=== PATIENT | male | born 1950 | race Caucasian/White ===

== ENCOUNTER 2018-02-27 08:34 | Inpatient (IN) | payer OTHER ==
[2018-02-27] VITALS (28 sets, daily range): BP systolic 90–175; BP diastolic 52–160; PULSE 51–100; TEMP 36.5–37; O2SAT 91–100; Ht 175.3 cm; Wt 88.5 kg
[~2018-02-27] VITALS: Ht 175.3 cm; Wt 88.5 kg
[2018-02-27] MEDS ORDERED: SODIUM CHLORIDE 0.9% 1000ML 1,000 ML IV SCH (08:38)
--- NOTE | 2018-02-27 08:51 | DIAGNOSTIC IMAGING REPORT ---
CT OF THE HEAD WITHOUT CONTRAST CLINICAL HISTORY: Code stroke. COMPARISON STUDY: No previous studies for comparison. CT DOSE: 537.48 mGy.cm TECHNIQUE: Helical axial images of the head were obtained without IV contrast. Automated exposure control was utilized for the study. A dose lowering technique was utilized adhering to the principles of ALARA. FINDINGS: No acute intracranial hemorrhage, midline shift or mass effect is present. The basilar artery is slightly dense although this is probably artifactual. There is possible loss of ken-white differentiation within the right insular cortex. Ventricular system is normal. Basilar cisterns are patent. There are no extra-axial collections. White matter hypodensities suggest moderate small vessel disease. There is moderate ethmoid and frontal sinus mucosal thickening. Mastoid air cells are clear. There are no significant calvarial abnormalities. IMPRESSION: 1. No acute intracranial hemorrhage or mass effect. 2. Possible loss of ken-white differentiation within the right insular cortex. This is likely artifactual although acute infarct could have this appearance. 3. Apparent increased attenuation of the basilar artery which is likely within normal limits. Thrombus could appear similar although is considered less likely. Electronically signed by: Dl Cardenas M.D. 02/27/2018 8:50 AM Dictated Date/Time: 02/27/2018 8:43 AM
[2018-02-27 09:02] LABS: BASO % 0.1 %; BASO ABS # 0.01 K/uL (0-0.2); HEMATOCRIT 41.7 % (42-52); HEMOGLOBIN 14.4 g/dL (14.0-18.0); LYMPH % 7.7 %; LYMPH ABS # 1.14 K/uL (1.2-3.4); MEAN CORPUSCULAR HEMOGLOBIN 32.8 pg (25-34); MEAN CORPUSCULAR HGB CONC 34.5 g/dl (32-36); MEAN PLATELET VOLUME 9.9 fL (7.4-10.4); MONO % 4.7 %; MONO ABS # 0.69 K/uL (0.11-0.59); NEUT % 86.8 %; NEUT ABS # 12.84 K/uL (1.4-6.5); PLATELET COUNT 357 K/uL (130-400); RED CELL DISTRIBUTION WIDTH CV 12.1 % (11.5-14.5); RED CELL DISTRIBUTION WIDTH SD 41.5 fL (36.4-46.3); WHITE BLOOD COUNT 14.78 K/uL (4.8-10.8)
--- NOTE | 2018-02-27 09:02 | DIAGNOSTIC IMAGING REPORT ---
CHEST ONE VIEW PORTABLE CLINICAL HISTORY: Stroke. COMPARISON STUDY: No previous studies for comparison. FINDINGS: Lung volumes are normal. No pneumothorax or pleural effusion is noted. Cardiac size is normal. Mediastinal contours are normal. There is no evidence for pulmonary edema. IMPRESSION: No acute cardiopulmonary findings. Electronically signed by: Dl Cardenas M.D. 02/27/2018 9:01 AM Dictated Date/Time: 02/27/2018 9:00 AM
--- NOTE | 2018-02-27 09:06 | EMERGENCY ROOM VISIT NOTE ---
History Report prepared by Nohemy: Chon Khan Under the Supervision of: Dr. Felicitas Ralph D.O. First contact with patient: 08:37 Chief Complaint: STROKE SYMPTOMS History of Present Illness The patient is a 68 year old male who presents to the Emergency Room with stroke symptoms. The patient presented to the ED from work this morning with his cousin. The patient's cousin notes that he first saw him at 0730 this morning and immediately knew something was "off." He notes that he notices a left sided facial droop and something being wrong with the patient's right arm and right leg. He notes that the right arm was "fidgeting" and he was rubbing his right leg constantly. It seemed like he was having a difficult time walking. He notes that he needed to help the patient into the truck to bring him to the emergency department, this is very unusual for him. The patient's was called on her cell phone as well. The states that when the patient woke up this morning he behaved normally. She notes that he has been having issues with his right arm for the past couple of weeks and was started on Prednisone for this. The patient left the home at 0710 and he was normal at this time, this was 1 hour and 20 minutes prior to his arrival. The patient himself notes that he thought his speech became different at 0730, 1 hour ago. He notes that the "sounds were coming out funny." He denies any headache, vision irregularities, dizziness, chest pain, or shortness of breath. Source of History: patient Onset: said he was well at 710, 1 hr 20 min ago Position: head (left face) Quality: other (left sided facial droop, speech slurr) Timing: other (patient noticed speech change 1 hour ago) Associated Symptoms: No chest pain, No SOB Review of Systems See HPI for pertinent positives & negatives. A total of 10 systems reviewed and were otherwise negative. Past Medical & Surgical Medical Problems: (1) Cerebrovascular accident (CVA) Social History Smoking Status: Unknown if Ever Smoked Drug Use: none Marital Status: Housing Status: lives with significant other Occupation Status: employed Current/Historical Medications Scheduled Lisinopril (Zestril), 10 MG PO DAILY Allergies Coded Allergies: No Known Allergies (Unverified , 02/27/18) Physical Exam Vital Signs Date Time Temp Pulse Resp B/P (MAP) Pulse Ox O2 Delivery O2 Flow Rate FiO2 02/27/18 11:00 86 16 174/119 94 Nasal Cannula 3.0 02/27/18 10:45 86 18 160/103 93 Nasal Cannula 3.0 02/27/18 10:30 85 18 163/99 96 Nasal Cannula 3.0 02/27/18 10:06 94 02/27/18 09:57 90 20 149/98 95 Nasal Cannula 3.0 02/27/18 09:42 90 16 158/72 94 Nasal Cannula 3.0 02/27/18 09:18 87 20 159/96 98 Nasal Cannula 3.0 02/27/18 09:14 170/93 02/27/18 09:10 169/106 02/27/18 09:04 90 24 92 02/27/18 08:57 185/106 02/27/18 08:57 89 16 185/106 97 Room Air 02/27/18 08:49 95 Room Air 02/27/18 08:49 90 20 96 02/27/18 08:48 92 02/27/18 08:45 173/89 02/27/18 08:34 37.0 93 18 173/89 98 Room Air Physical Exam GENERAL: alert, well appearing, well nourished, no distress, non-toxic EYE EXAM: normal conjunctiva, PERRL and EOM's grossly intact OROPHARYNX: no exudate, no erythema, lips, buccal mucosa, and tongue normal and mucous membranes are moist NECK: supple, no nuchal rigidity, no adenopathy, non-tender LUNGS: Clear to auscultation. Normal chest wall mechanics HEART: no murmurs, S1 normal and S2 normal ABDOMEN: abdomen soft, non-tender, normo-active bowel sounds, no masses, no rebound or guarding. BACK: Back is symmetrical on inspection and there is no deformity, no midline tenderness, no CVA tenderness. SKIN: no rashes and no bruising UPPER EXTREMITIES: upper extremities are grossly normal. LOWER EXTREMITIES: No pitting edema. NEURO EXAM: There is a left facial droop, slurred speech. Normal sensorium, cranial nerves II-XII intact, normal speech, no weakness of arms, no weakness of legs. NIHSS: 3 Medical Decision & Procedures ER Provider Diagnostic Interpretation: Radiology results have been interpreted by the radiologist and reviewed by me. HEAD ANGIO WITH CONTRAST HISTORY: 68 years-old Male T acute strokelike symptoms COMPARISON: CT head 02/27/2018 TECHNIQUE: CTA of the head was obtained following the intravenous administration of 92 mL Optiray 320 IV contrast. 3-D coronal and sagittal MIPS were obtained from the axial data set and were submitted for review. All measurements were obtained according to NASCET criteria. A dose lowering technique was used consistent with the principals of ALARA. FINDINGS: Moderate calcified plaque about the cavernous and clinoid segments bilaterally. Moderate mostly atheromatous plaque about the cavernous right ICA results in proximally 60% luminal narrowing, for example see image 89 series 3. The bilateral middle and anterior cerebral arteries appear widely patent. Anterior communicating artery is patent. The left vertebral artery is dominant. The majority of the right vertebral artery terminates into the its lateral PICA. Basilar artery is patent. Bilateral posterior cerebral arteries are widely patent. Major venous sinuses are patent. No aneurysm, dissection or proximal branch occlusion. IMPRESSION: 1. Mixed plaque formation about the cavernous and clinoid portions of the internal carotid arteries bilaterally results in approximately 60% luminal narrowing within the cavernous segment right ICA. The left ICA appears widely patent. 2. No aneurysm, dissection or proximal branch occlusion identified. The above report was generated using voice recognition software. It may contain grammatical, syntax or spelling errors. Electronically signed by: Jacob Nelson M.D. 02/27/2018 10:59 AM Dictated Date/Time: 02/27/2018 10:[address] ANGIOGRAPHY OF THE NECK WITH CONTRAST CLINICAL HISTORY: Worsening stroke symptoms. COMPARISON STUDY: No previous studies for comparison. Technique: CT angiography of the carotid and vertebral arteries was obtained using Optiray 320 IV and 3D reconstruction on an independent workstation. NASCET criteria was utilized. A dose lowering technique was utilized adhering to the principles of ALARA. Findings: The origins of the bilateral common carotid and vertebral arteries are patent. There is severe stenosis at the origin of the right internal carotid artery with a string sign. The vessel diameter at site of stenosis is difficult to measure given the high degree of stenosis at the vessel measures approximately 0.8 mm in caliber. The more distal right internal carotid artery measures 4.7 mm. There is 95-99% stenosis of the proximal right internal carotid artery. There is no significant stenosis of the left internal carotid artery. The left vertebral artery is dominant. There is mild plaque at the origin of the left vertebral artery with suspected mild stenosis. The right vertebral artery is patent. There is no cervical lymphadenopathy. Lung apices are clear. The CTA of the head will be reported separately. There is slight asymmetric decreased caliber of the distal cervical portion of the right internal carotid artery when compared to the left. IMPRESSION: 1. Severe (95-99% stenosis) of the proximal right internal carotid artery due to extensive noncalcified atherosclerotic plaque. 2. No stenosis of the left internal carotid artery. 3. Mild stenosis at origin of the left vertebral artery. Electronically signed by: Dl Cardenas M.D. 02/27/2018 10:52 AM Dictated Date/Time: 02/27/2018 10:[address] OF THE HEAD WITHOUT CONTRAST CLINICAL HISTORY: forced gaze deviation, on tPA COMPARISON STUDY: Head CT February 27, 2018 at 8:[address] DOSE: 691.05 mGy.cm TECHNIQUE: Helical axial images of the head were obtained without IV contrast. Automated exposure control was utilized for the study. A dose lowering technique was utilized adhering to the principles of ALARA. FINDINGS: No acute intracranial hemorrhage, midline shift or mass effect is present. Ventricular system is normal. Basilar cisterns are patent. There are no extra-axial collections. Possible loss of ken-white differentiation within the right insular cortex is noted. Apparent slight increased attenuation of the basilar artery is likely within normal limits. There is no calvarial fracture. There is moderate ethmoid and frontal sinus mucosal thickening. White matter hypodensity suggests small vessel disease. IMPRESSION: 1. No acute intracranial hemorrhage or mass effect. 2. Equivocal loss of ken-white differentiation within the right insular cortex. Electronically signed by: Dl Cardenas M.D. 02/27/2018 10:25 AM Dictated Date/Time: 02/27/2018 10:17 AM CHEST ONE VIEW PORTABLE CLINICAL HISTORY: Stroke. COMPARISON STUDY: No previous studies for comparison. FINDINGS: Lung volumes are normal. No pneumothorax or pleural effusion is noted. Cardiac size is normal. Mediastinal contours are normal. There is no evidence for pulmonary edema. IMPRESSION: No acute cardiopulmonary findings. Electronically signed by: Dl Cardenas M.D. 02/27/2018 9:01 AM Dictated Date/Time: 02/27/2018 9:[address] OF THE HEAD WITHOUT CONTRAST CLINICAL HISTORY: Code stroke. COMPARISON STUDY: No previous studies for comparison. CT DOSE: 537.48 mGy.cm TECHNIQUE: Helical axial images of the head were obtained without IV contrast. Automated exposure control was utilized for the study. A dose lowering technique was utilized adhering to the principles of ALARA. FINDINGS: No acute intracranial hemorrhage, midline shift or mass effect is present. The basilar artery is slightly dense although this is probably artifactual. There is possible loss of ken-white differentiation within the right insular cortex. Ventricular system is normal. Basilar cisterns are patent. There are no extra-axial collections. White matter hypodensities suggest moderate small vessel disease. There is moderate ethmoid and frontal sinus mucosal thickening. Mastoid air cells are clear. There are no significant calvarial abnormalities. IMPRESSION: 1. No acute intracranial hemorrhage or mass effect. 2. Possible loss of ken-white differentiation within the right insular cortex. This is likely artifactual although acute infarct could have this appearance. 3. Apparent increased attenuation of the basilar artery which is likely within normal limits. Thrombus could appear similar although is considered less likely. Electronically signed by: Dl Cardenas M.D. 02/27/2018 8:50 AM Dictated Date/Time: 02/27/2018 8:43 AM Laboratory Results Test 02/27/18 08:47 Prothrombin Time 9.6 SECONDS (9.0-12.0) Prothromb Time International Ratio 0.9 (0.9-1.1) Activated Partial Thromboplast Time 26.2 SECONDS (21.0-31.0) Partial Thromboplastin Ratio 1.0 Estimated Average Glucose 120 mg/dl Hemoglobin A1c 5.8 % (4.5-5.6) Magnesium Level 2.1 mg/dl (1.8-2.4) Total Creatine Kinase 25 U/L (39-308) Creatine Kinase MB < 1.0 ng/ml (0.5-3.6) Creatine Kinase MB Ratio (0-3.0) Troponin I < 0.015 ng/ml (0-0.045) Laboratory results per my review. Medications Administered Medications (Trade) Dose Ordered Sig/Alejandra Route Start Time Stop Time Status Last Admin Dose Admin Sodium Chloride 1,000 ml @ 50 mls/hr Q20H IV 02/27/18 08:38 02/27/18 15:02 DC 02/27/18 08:56 50 MLS/HR Alteplase, Recombinant 77.4 mg/Empty Bag 77.4 ml @ 77.4 mls/hr TODAY@0915 ONCE IV 02/27/18 09:15 02/27/18 10:14 DC 02/27/18 09:21 77.4 MLS/HR Alteplase, Recombinant 8.6 mg/Syringe 8.6 ml @ 8.6 mls/min TODAY@0915 ONCE IV 02/27/18 09:15 02/27/18 09:16 DC 02/27/18 09:18 8.6 MLS/MIN ECG Per My Interpretation Indication: weakness Rate (beats per minute): 93 Rhythm: normal sinus Findings: no acute ischemic change, no ectopy, other (No LACI/STD) ED Course 0831: The patient was evaluated in room A1. A complete history and physical exam was performed. 0835: The patient arrived at this time and went straight to CT for head imaging. 0838: Ordered Sodium Chloride 1000 mL @ 50 mL/hr IV. 0843: The patient returned from CT: The patient was evaluated in room A1. A complete history and physical exam was performed. 0857: I discussed the case with Dr. Chris Murphy [place] [facility]. She will evaluate the patient. 0858: I checked on the patient. Dr. Perez is coming onto the stroke cart screen. 0915: Ordered Ateplase 77.4 mL @ 77.4 mL/hr IV. 0918: TPA was pushed at this time. 0923: I checked on the patient TPA is running. 1020: The patient developed a new fixed gaze at this time. TPA was stopped. Repeat head CT ordered. I discussed with Dr. Perez again she suggests ordering a new CT of the head with Angio. 1106: I discussed with Dr. Perez again and updated her results. Suggest finishing the TPA, and if possible at our facility to have vascular evaluate for surgical intervention of the right ICA near occlusion. Suggest making sure the patient is lying flat as there may be an element of hypoperfusion which has led to additional symptoms given the significant occlusion of the right ICA. 1119: I discussed the case with Radha Kothari Hospitalist BR[facility]. She is admitting the patient and he will go to ICU. Did discuss the need for availability of vascular surgery, and if this was not possible, would consider transferring the patient to [place]. Family was made aware of all this as well. She was able to contact Dr. Cornell who was agreeable with consultation on the patient and operative intervention and felt the patient could be kept here for treatment. Medical Decision Prior records/ancillary studies reviewed and summarized above. Nursing notes reviewed. Differential diagnosis: Etiologies such as metabolic, infection, hypo/hyperglycemia, electrolyte abnormalities, cardiac sources, intracerebral event, toxicologic, neurologic, as well as others were entertained. Patient with concerning story and acute time of onset this morning, however on my arrival, cousin about patient and felt that the patient's right-sided symptoms were improved, and my initial stroke score was 3. Patient evaluated by her she tele-stroke neurologist who felt TPA was appropriate for this patient and this was started as soon as it was available. Patient hemodynamically stable and no significant contraindications. While receiving the TPA patient suddenly had new and concerning symptoms of the TPA was stopped and patient sent back down for repeat head CT. I recontacted the stroke neurologist who agreed with a repeat noncontrast CT of the head but also requested adding a CT angio of the head. Upon patient's return, some of these new symptoms were slightly improved, the noncontrast CT did not show any bleed, however the angiography portion revealed a significant right ICA stenosis. Case was again discussed with neurology who recommended letting the patient flat , continue the TPA, and urgent surgical intervention of the right ICA occlusion. Case was discussed with hospitalist initially for admission as well as the intensive care unit. I did discuss these new findings with him again, and they contacted vascular surgery who was agreeable with evaluation and treatment at our facility. Patient and family kept aware of all results and changes as they occurred and were agreeable with plan. Mild leukocytosis initially found more likely stress response, do not suspect occult bacteremia/ sepsis. Hypertension was noted, although there may be a component of anxiety given acuity of situation. No contraindication to TPA, risks and benefits were discussed with the patient by the tele-neurologist and nursing global coordinator. Medication Reconcilliation Current Medication List: was personally reviewed by me Blood Pressure Screening Patient's blood pressure: Elevated blood pressure Referred to hospitalist, ICU Consults Time Called: 0829 Consulting Physician: Dr. Chris Saavedra [facility] Returned Call: [phone] I discussed the case with Dr. Chris Saavedra [facility] Neu[facility]. She will evaluate the patient. Impression Primary Impression: Cerebrovascular accident (CVA) Additional Impressions: Hypertension Internal carotid artery stenosis Critical Care I have personally spent 90 minutes of critical care time in the direct management of this patient. This includes bedside care, interpretation of diagnostic studies, and testing, discussion with consultants, patient, and family members, and other required patient management activities. This 90 minutes is in excess of all separately billable procedures. Scribe Attestation The scribe's documentation has been prepared under my direction and personally reviewed by me in its entirety. I confirm that the note above accurately reflects all work, treatment, procedures, and medical decision making performed by me. Departure Information Dispostion Being Evaluated By Hospitalist Patient Instructions My [facility] Stroke History Time Last Known Well 07 Stroke t-PA Criteria Reviewed Meets criteria for t-PA Reason t-PA Not Given Treatment provided - N/A Problem Qualifiers Primary Impression: Cerebrovascular accident (CVA) CVA mechanism: unspecified Qualified Codes: I63.9 - Cerebral infarction, unspecified Additional Impressions: Hypertension Hypertension type: essential hypertension Qualified Codes: I10 - Essential ( primary) hypertension Internal carotid artery stenosis Laterality: right Qualified Codes: I65.21 - Occlusion and stenosis of right carotid artery
[2018-02-27 09:09] LABS: INR 0.9 (0.9-1.1); PTT PATIENT 26.2 SECONDS (21.0-31.0)
[2018-02-27] MEDS ORDERED: ALTEPLASE IV ONE ×2 (09:15)
[2018-02-27] MEDS ORDERED: SET 2260-0500 IV ONE (09:15)
[2018-02-27] MEDS ORDERED: RECOMBINANT IV ONE ×2 (09:15)
[2018-02-27 09:22] LABS: BLOOD UREA NITROGEN 20 mg/dl (7-18); CALCIUM 9.7 mg/dl (8.5-10.1); CARBON DIOXIDE 28 mmol/L (21-32); CKMB < 1.0 ng/ml (0.5-3.6); CREATININE 0.87 mg/dl (0.60-1.40); GLUCOSE 106 mg/dl (70-99); POTASSIUM 4.4 mmol/L (3.5-5.1); SODIUM 136 mmol/L (136-145)
[2018-02-27] MEDS ORDERED: LISI-461 PO (09:35)
--- NOTE | 2018-02-27 10:26 | DIAGNOSTIC IMAGING REPORT ---
CT OF THE HEAD WITHOUT CONTRAST CLINICAL HISTORY: forced gaze deviation, on tPA COMPARISON STUDY: Head CT February 27, 2018 at 8:[address] DOSE: 691.05 mGy.cm TECHNIQUE: Helical axial images of the head were obtained without IV contrast. Automated exposure control was utilized for the study. A dose lowering technique was utilized adhering to the principles of ALARA. FINDINGS: No acute intracranial hemorrhage, midline shift or mass effect is present. Ventricular system is normal. Basilar cisterns are patent. There are no extra-axial collections. Possible loss of ken-white differentiation within the right insular cortex is noted. Apparent slight increased attenuation of the basilar artery is likely within normal limits. There is no calvarial fracture. There is moderate ethmoid and frontal sinus mucosal thickening. White matter hypodensity suggests small vessel disease. IMPRESSION: 1. No acute intracranial hemorrhage or mass effect. 2. Equivocal loss of ken-white differentiation within the right insular cortex. Electronically signed by: Dl Cardenas M.D. 02/27/2018 10:25 AM Dictated Date/Time: 02/27/2018 10:17 AM
[2018-02-27] MEDS ORDERED: PHARMACIST DISCHARGE MED REC CONSULT PRN (10:45)
[2018-02-27] MEDS ORDERED: ICU PROTOCOL FOR HYPERGLYCEMIA PRN (10:45)
[2018-02-27] MEDS ORDERED: OPTIRAY 320 IV PRN (10:45)
--- NOTE | 2018-02-27 10:54 | DIAGNOSTIC IMAGING REPORT ---
CT ANGIOGRAPHY OF THE NECK WITH CONTRAST CLINICAL HISTORY: Worsening stroke symptoms. COMPARISON STUDY: No previous studies for comparison. Technique: CT angiography of the carotid and vertebral arteries was obtained using Tercica 320 IV and 3D reconstruction on an independent workstation. NASCET criteria was utilized. A dose lowering technique was utilized adhering to the principles of ALARA. Findings: The origins of the bilateral common carotid and vertebral arteries are patent. There is severe stenosis at the origin of the right internal carotid artery with a string sign. The vessel diameter at site of stenosis is difficult to measure given the high degree of stenosis at the vessel measures approximately 0.8 mm in caliber. The more distal right internal carotid artery measures 4.7 mm. There is 95-99% stenosis of the proximal right internal carotid artery. There is no significant stenosis of the left internal carotid artery. The left vertebral artery is dominant. There is mild plaque at the origin of the left vertebral artery with suspected mild stenosis. The right vertebral artery is patent. There is no cervical lymphadenopathy. Lung apices are clear. The CTA of the head will be reported separately. There is slight asymmetric decreased caliber of the distal cervical portion of the right internal carotid artery when compared to the left. IMPRESSION: 1. Severe (95-99% stenosis) of the proximal right internal carotid artery due to extensive noncalcified atherosclerotic plaque. 2. No stenosis of the left internal carotid artery. 3. Mild stenosis at origin of the left vertebral artery. Electronically signed by: Dl Cardenas M.D. 02/27/2018 10:52 AM Dictated Date/Time: 02/27/2018 10:43 AM
--- NOTE | 2018-02-27 11:01 | DIAGNOSTIC IMAGING REPORT ---
HEAD ANGIO WITH CONTRAST HISTORY: 68 years-old Male T acute strokelike symptoms COMPARISON: CT head 02/27/2018 TECHNIQUE: CTA of the head was obtained following the intravenous administration of 92 mL Optiray 320 IV contrast. 3-D coronal and sagittal MIPS were obtained from the axial data set and were submitted for review. All measurements were obtained according to NASCET criteria. A dose lowering technique was used consistent with the principals of DAVE. FINDINGS: Moderate calcified plaque about the cavernous and clinoid segments bilaterally. Moderate mostly atheromatous plaque about the cavernous right ICA results in proximally 60% luminal narrowing, for example see image 89 series 3. The bilateral middle and anterior cerebral arteries appear widely patent. Anterior communicating artery is patent. The left vertebral artery is dominant. The majority of the right vertebral artery terminates into the its lateral PICA. Basilar artery is patent. Bilateral posterior cerebral arteries are widely patent. Major venous sinuses are patent. No aneurysm, dissection or proximal branch occlusion. IMPRESSION: 1. Mixed plaque formation about the cavernous and clinoid portions of the internal carotid arteries bilaterally results in approximately 60% luminal narrowing within the cavernous segment right ICA. The left ICA appears widely patent. 2. No aneurysm, dissection or proximal branch occlusion identified. The above report was generated using voice recognition software. It may contain grammatical, syntax or spelling errors. Electronically signed by: Jacob Nelson M.D. 02/27/2018 10:59 AM Dictated Date/Time: 02/27/2018 10:52 AM
[2018-02-27] MEDS ORDERED: HEPARIN SOD (PORCINE) 1000 UNIT/ML 10 ML VIAL ONE ×2 (12:06→13:34)
[2018-02-27] MEDS ORDERED: LIDOCAINE HCL 1% 20 ML VIAL ONE (12:06)
[2018-02-27] MEDS ORDERED: BUPIVACAINE/EPINEPHRINE 0.5% MPF 1:200,000 30 ML VIAL ONE (12:07)
[2018-02-27] MEDS ORDERED: CEFAZOLIN SOD 1 GM VIAL ONE (12:07)
[2018-02-27] MEDS ORDERED: GELATIN SPONGE SZ 100 ONE (12:07)
[2018-02-27] MEDS ORDERED: THROMBIN FOR SOLN 20000 UNIT KIT ONE (12:07)
[2018-02-27 12:44] LABS: HEMOGLOBIN A1C 5.8 % (4.5-5.6)
--- NOTE | 2018-02-27 12:49 | ECHOCARDIOGRAM REPORT ---
*NOTICE TO RECEIVING REPUBLICAN AGENCY This information is strictly Confidential and protected under [place] law. [place] law prohibits you from making any further disclosure of this information unless further disclosure is expressly permitted by the written consent of the person to whom it pertains or is authorized by law. A general authorization for the release of medical or other information is not sufficient for this purpose. Hospital accepts no responsibility if the information is made available to any other person, INCLUDING THE PATIENT. Interpretation Summary * Name: ALINA GARCIA Study Date: 02/27/2018 11:26 AM BP: 160/103 mmHg * Patient Location: [facility] HR: 86 * : 1950 (M/d/yyyy) Gender: Male Height: 69 in * Age: 68 yrs Ethnicity: CA Weight: 210 lb * Ordering Physician: Radha Caldwell * Referring Physician: Self, Referred * Performed By: Harper Forrester RCS * * Reason For Study: Cerebral Ischemia/Embolus * BSA: 2.1 m2 * -- Conclusions -- * 1. Normal LV size. Normal LV wall thickness. * 2. LVEF 65-70%. No regional wall motion abnormalities. * 3. Normal RV size and function. * 4. No significant valvular pathology. * 5. Normal estimated PA and RA pressures. * 6. Negative saline contrast study for interatrial shunt. * 7. No prior studies for comparison. Procedure Details * A complete two-dimensional transthoracic echocardiogram was performed (2D, M-mode, Doppler and color flow Doppler). * A saline contrast injection was performed to assess for cardiac shunting. * The injection was performed through an intravenous line in the right arm. * The attending nurse who injected the saline contrast was Kyrie Buenrostro RN. * A total of 30 cc of agitated saline was given. Left Ventricle * The left ventricle is grossly normal size. * There is normal left ventricular wall thickness. * Ejection Fraction = 65-70%. * No regional wall motion abnormalities noted. Right Ventricle * The right ventricle is grossly normal size. * The right ventricular systolic function is normal as assessed by tricuspid annular plane systolic excursion (TAPSE) (normal >1.5 cm). Atria * The left atrial size is normal. * Right atrial size is normal. * Injection of contrast documented no interatrial shunt. Mitral Valve * The mitral valve is grossly normal. * There is no mitral valve stenosis. * Significant mitral regurgitation is absent. Tricuspid Valve * There is trace tricuspid regurgitation. * Right ventricular systolic pressure is normal. Aortic Valve * The aortic valve opens well. * The aortic valve is trileaflet. * No hemodynamically significant valvular aortic stenosis. * There is no significant aortic regurgitation. Pulmonic Valve * The pulmonary valve is inadequately visualized, but the Doppler data is adequate for interpretation. * Pulmonic stenosis is absent. * There is no significant pulmonary regurgitation. Great Vessels * The aortic root and proximal ascending aorta are normal sized. Pericardium/Pleural * There is no pericardial effusion. Great Vessels * Normal inferior vena cava size and collapsability with sniff indicates a normal right atrial pressure of 3 mmHg MMode 2D Measurements and Calculations IVSd 1.0 cm IVSs 1.2 cm LVIDd 3.9 cm LVIDs 2.5 cm LVPWd 1.0 cm LVPWs 1.2 cm IVS/LVPW 0.96 FS 34.1 % EDV(Teich) 64.2 ml ESV(Teich) 23.3 ml EF(Teich) 63.7 % EDV(cubed) 57.4 ml ESV(cubed) 16.4 ml EF(cubed) 71.4 % % IVS thick 18.8 % % LVPW thick 17.6 % LV mass(C)d 124.3 grams LV mass(C)dI 58.9 grams/m\S\2 LV mass(C)s 88.7 grams LV mass(C)sI 42.1 grams/m\S\2 SV(Teich) 40.9 ml SI(Teich) 19.4 ml/m\S\2 SV(cubed) 41.0 ml SI(cubed) 19.4 ml/m\S\2 Ao root diam 3.5 cm Ao root area 9.7 cm\S\2 ACS 1.3 cm LA dimension 3.4 cm asc Aorta Diam 3.3 cm LA/Ao 0.98 EDV(MOD-sp4) 119.0 ml ESV(MOD-sp4) 48.0 ml EF(MOD-sp4) 59.7 % EDV(MOD-sp2) 98.0 ml ESV(MOD-sp2) 40.0 ml EF(MOD-sp2) 59.2 % SV(MOD-sp4) 71.0 ml SI(MOD-sp4) 33.7 ml/m\S\2 SV(MOD-sp2) 58.0 ml SI(MOD-sp2) 27.5 ml/m\S\2 Doppler Measurements and Calculations MV E max holly 72.3 cm/sec MV A max holly 112.9 cm/sec MV E/A 0.64 MV P1/2t max holly 87.1 cm/sec MV P1/2t 59.9 msec MVA(P1/2t) 3.7 cm\S\2 MV dec slope 426.3 cm/sec\S\2 MV dec time 0.31 sec Ao V2 max 150.7 cm/sec Ao max PG 9.1 mmHg Ao max PG (full) 2.1 mmHg LV V1 max PG 7.0 mmHg LV V1 max 132.2 cm/sec PA V2 max 138.6 cm/sec PA max PG 7.7 mmHg TR max holly 266.0 cm/sec
--- NOTE | 2018-02-27 12:52 | History and Physical ---
History & Physical Date & Time of Service: Feb 27, 2018 at 12:36 Chief Complaint: Stroke Symptoms Primary Care Physician: Gal Cruz PA-C History of Present Illness Source: patient, family Mr. Wilkinson is a 68 y/o male with PMHx of HTN who presents to the ED for L facial droop and RUE/RLE dysfunction starting this AM. Patient was last known well around 0710 this AM. He was seen by his prior to her leaving and was in his normal state of health. Patient's cousin reports seeing him around 0730 this morning with a L sided facial droop and fidgeting RUE and rubbing his RLE constantly. He was having some difficulty ambulating and needed assistance to get into the truck to come to the ED. He has had issues with his R arm over the past week reporting pain and weakness. He was started on a Medrol dosepak last week and reports some improvement with symptoms. However did not completely resolve and started Prednisone 60 mg last night and tonight to start a new regimen. He states prior to today he has been in his normal state of health other than the arm. Open arrival to the ED, patient did have noted R sided issues and L facial droop and some aphasia. A stroke alert was called and he was deemed a tPA candidate. Initial Head CT showed possible infarct of R insular cortex and possible thrombus in the basilar artery but was not completely conclusive. tPA was administered and more obvious L sided deficits were evident. tPA was stopped and repeat Head CT performed which continued to show the findings in the R insular cortex but no mention of thrombus in basilar artery. He went for CTA which revealed severe 95-99% stenosis of prox R ICA and approx. 60% luminal narrowing within the cavernous segment of R ICA. ED provider discussed with Keri which recommended revascularization. During my initial examination patient with L sided neglect, R sided gaze, L facial droop, mild slurred speech , weakness to L hand literature teacher/flexion/extension of extremities, and initially could not hold both arms out in front of him but could individually with some drift of LUE. tPA was reinstituted which did improve some of his symptoms. He will also go for carotid endarterectomy today. Past Medical/Surgical History Medical Problems: (1) Cerebrovascular accident (CVA) (2) HTN (3) S/P R Carpal Tunnel Release Family History Hypertension Social History Smoking Status: Never Smoker Smokeless Tobacco Use: No Alcohol Use: none Drug Use: none Marital Status: Allergies Coded Allergies: No Known Allergies (Unverified , 02/27/18) Home Medications Scheduled Lisinopril (Zestril), 10 MG PO DAILY Review of Systems Constitutional: No fever, No chills ENT: No nasal symptoms, No sore throat Respiratory: No cough, No shortness of breath Cardiovascular: No chest pain Abdomen: No pain, No nausea, No vomiting, No diarrhea, No constipation Musculoskeletal: No swelling, No calf pain Genitourinary - Male: No dysuria Neurologic: + weakness (initially R sided then L sided), + balance problems Hematologic / Lymphatic: No abnormal bleeding/bruising Integumentary: No rash Physical Exam Vital Signs Date Time Temp Pulse Resp B/P (MAP) Pulse Ox O2 Delivery O2 Flow Rate FiO2 02/27/18 12:12 100 22 160/101 96 Nasal Cannula 3.0 02/27/18 12:00 96 13 163/99 97 Nasal Cannula 3.0 02/27/18 11:50 90 14 157/98 95 Nasal Cannula 3.0 02/27/18 11:44 87 17 129/84 94 Nasal Cannula 3.0 02/27/18 11:30 85 17 145/104 93 Nasal Cannula 3.0 02/27/18 11:30 98 Nasal Cannula 3.0 02/27/18 11:20 90 26 164/107 98 Nasal Cannula 3.0 02/27/18 11:10 83 20 166/100 96 Nasal Cannula 3.0 02/27/18 11:00 86 16 174/119 94 Nasal Cannula 3.0 02/27/18 10:45 86 18 160/103 93 Nasal Cannula 3.0 02/27/18 10:30 85 18 163/99 96 Nasal Cannula 3.0 02/27/18 10:06 94 02/27/18 09:57 90 20 149/98 95 Nasal Cannula 3.0 02/27/18 09:42 90 16 158/72 94 Nasal Cannula 3.0 02/27/18 09:18 87 20 159/96 98 Nasal Cannula 3.0 02/27/18 09:14 170/93 02/27/18 09:10 169/106 02/27/18 09:04 90 24 92 02/27/18 08:57 185/106 02/27/18 08:57 89 16 185/106 97 Room Air 02/27/18 08:49 95 Room Air 02/27/18 08:49 90 20 96 02/27/18 08:48 92 02/27/18 08:45 173/89 02/27/18 08:34 37.0 93 18 173/89 98 Room Air General Appearance: WD/WN, no apparent distress Head: normocephalic, atraumatic Eyes: sclerae normal ENT: hearing grossly normal Neck: supple, no JVD, trachea midline Respiratory/Chest: lungs clear, normal breath sounds, no respiratory distress, no accessory muscle use Cardiovascular: regular rate, rhythm, no gallop, no murmur Abdomen/GI: normal bowel sounds, non tender, soft Extremities/Musculoskelatal: no calf tenderness, no pedal edema Neurologic/Psych: alert, oriented x 3, + pertinent finding (initial L facial droop and mild slurred speech; can follow commands without difficulty; can lift arms individually but not together initially; weakness to L hand literature teacher, flexion/ extension of L arm, and L dorsiflexion/plantar flexion --re-evaluation the L sided deficits are improving but L facial droop remains) Skin: normal color, warm/dry Diagnostics Laboratory Results Results Past 24 Hours Test 02/27/18 08:47 Range/Units White Blood Count 14.78 4.8-10.8 K/uL Red Blood Count 4.39 4.7-6.1 M/uL Hemoglobin 14.4 14.0-18.0 g/dL Hematocrit 41.7 42-52 % Mean Corpuscular Volume 95.0 80-100 fL Mean Corpuscular Hemoglobin 32.8 25-34 pg Mean Corpuscular Hemoglobin Concent 34.5 32-36 g/dl Platelet Count 357 130-400 K/uL Mean Platelet Volume 9.9 7.4-10.4 fL Neutrophils (%) (Auto) 86.8 % Lymphocytes (%) (Auto) 7.7 % Monocytes (%) (Auto) 4.7 % Eosinophils (%) (Auto) 0.0 % Basophils (%) (Auto) 0.1 % Neutrophils # (Auto) 12.84 1.4-6.5 K/uL Lymphocytes # (Auto) 1.14 1.2-3.4 K/uL Monocytes # (Auto) 0.69 0.11-0.59 K/uL Eosinophils # (Auto) 0.00 0-0.5 K/uL Basophils # (Auto) 0.01 0-0.2 K/uL RDW Standard Deviation 41.5 36.4-46.3 fL RDW Coefficient of Variation 12.1 11.5-14.5 % Immature Granulocyte % (Auto) 0.7 % Immature Granulocyte # (Auto) 0.10 0.00-0.02 K/uL Prothrombin Time 9.6 9.0-12.0 SECONDS Prothromb Time International Ratio 0.9 0.9-1.1 Activated Partial Thromboplast Time 26.2 21.0-31.0 SECONDS Partial Thromboplastin Ratio 1.0 Sodium Level 136 136-145 mmol/L Potassium Level 4.4 3.5-5.1 mmol/L Chloride Level 100 98-107 mmol/L Carbon Dioxide Level 28 21-32 mmol/L Anion Gap 8.0 3-11 mmol/L Blood Urea Nitrogen 20 7-18 mg/dl Creatinine 0.87 0.60-1.40 mg/dl Est Creatinine Clear Calc Drug Dose 95.3 ml/min Estimated GFR () 104.2 Estimated GFR (Non- 89.9 BUN/Creatinine Ratio 23.0 10-20 Bedside Glucose 111 70-99 mg/dl Random Glucose 106 70-99 mg/dl Calcium Level 9.7 8.5-10.1 mg/dl Magnesium Level 2.1 1.8-2.4 mg/dl Total Creatine Kinase 25 39-308 U/L Creatine Kinase MB < 1.0 0.5-3.6 ng/ml Creatine Kinase MB Ratio 0-3.0 Troponin I < 0.015 0-0.045 ng/ml Diagnostic Radiology HEAD ANGIO WITH CONTRAST FINDINGS: Moderate calcified plaque about the cavernous and clinoid segments bilaterally. Moderate mostly atheromatous plaque about the cavernous right ICA results in proximally 60% luminal narrowing, for example see image 89 series 3. The bilateral middle and anterior cerebral arteries appear widely patent. Anterior communicating artery is patent. The left vertebral artery is dominant. The majority of the right vertebral artery terminates into the its lateral PICA. Basilar artery is patent. Bilateral posterior cerebral arteries are widely patent. Major venous sinuses are patent. No aneurysm, dissection or proximal branch occlusion. IMPRESSION: 1. Mixed plaque formation about the cavernous and clinoid portions of the internal carotid arteries bilaterally results in approximately 60% luminal narrowing within the cavernous segment right ICA. The left ICA appears widely patent. 2. No aneurysm, dissection or proximal branch occlusion identified. CT ANGIOGRAPHY OF THE NECK WITH CONTRAST Findings: The origins of the bilateral common carotid and vertebral arteries are patent. There is severe stenosis at the origin of the right internal carotid artery with a string sign. The vessel diameter at site of stenosis is difficult to measure given the high degree of stenosis at the vessel measures approximately 0.8 mm in caliber. The more distal right internal carotid artery measures 4.7 mm. There is 95-99% stenosis of the proximal right internal carotid artery. There is no significant stenosis of the left internal carotid artery. The left vertebral artery is dominant. There is mild plaque at the origin of the left vertebral artery with suspected mild stenosis. The right vertebral artery is patent. There is no cervical lymphadenopathy. Lung apices are clear. The CTA of the head will be reported separately. There is slight asymmetric decreased caliber of the distal cervical portion of the right internal carotid artery when compared to the left. IMPRESSION: 1. Severe (95-99% stenosis) of the proximal right internal carotid artery due to extensive noncalcified atherosclerotic plaque. 2. No stenosis of the left internal carotid artery. 3. Mild stenosis at origin of the left vertebral artery. CT OF THE HEAD WITHOUT CONTRAST FINDINGS: No acute intracranial hemorrhage, midline shift or mass effect is present. Ventricular system is normal. Basilar cisterns are patent. There are no extra-axial collections. Possible loss of ken-white differentiation within the right insular cortex is noted. Apparent slight increased attenuation of the basilar artery is likely within normal limits. There is no calvarial fracture. There is moderate ethmoid and frontal sinus mucosal thickening. White matter hypodensity suggests small vessel disease. IMPRESSION: 1. No acute intracranial hemorrhage or mass effect. 2. Equivocal loss of ken-white differentiation within the right insular cortex. EKG Normal sinus rhythm Normal ECG No previous ECGs available Impression Assessment and Plan Mr. Wilkinson is a 68 y/o male with PMHx of HTN who presents to the ED for L facial droop and RUE/RLE dysfunction starting this AM. CVA Possible Aborted S/P tPA: Significant R ICA Carotid Stenosis - Patient had a rather unique presentation as he had L facial droop and R sided issues but was deemed a tPA candidate but developed L sided neglect, R gaze, L sided weakness. tPA was stopped and repeat head CT performed without bleed. CTA revealed significant R ICA stenosis with recommendations for revascularization. tPA was restarted and deficits improved since my initial assessment while off tPA - Neuro checks and NIH stroke scale; will add Day 2 S/P TPA orders in at that time - PT/OT/Speech Evaluations - Echo obtained and unremarkable - Consult Vascular - discussed with Allison Barahona PA-C and Dr. Cornell - planning on emergent carotid endarterectomy - Consult Neurology - appreciate recommendations - Consult Intensivists - discussed with team - appreciate co-management HTN: - Hold Lisinopril; Will monitor BP to allow appropriate coverage - will appreciate vascular input on parameters given endarterectomy Leukocytosis: - Suspect related to steroids prior to admission - no signs of infection DVT Prophylaxis: SCDs Code Status: FULL RESUSCITATION Prolonged care of 120 minutes. I spent this time in direct and indirect patient care to include chart review, patient assessment, patient updates, discussion with ED provider/Melting Operator/Vascular, and intervention. Start time 10:30 and end time 12:30 Disposition: From home Advanced Directives Existing Living Will: Yes Existing Power of Revenue Investigator: Yes Resuscitation Status VTE Prophylaxis Will order VTE Prophylaxis: Yes
[2018-02-27] MEDS ORDERED: PNEUMOCOCCAL ADMINISTRATION CHARGE ONE (13:00)
[2018-02-27] MEDS ORDERED: SODIUM CHLORIDE 0.9% 1000ML 1,000 ML IV ONE (13:00)
[2018-02-27] MEDS ORDERED: HYDROCORTISONE IV 100 MG in SYRINGE 0 ML IV ONE (13:00)
[2018-02-27] MEDS ORDERED: CEFAZOLIN IV 2,000 MG in SYRINGE 0 ML IV ONE (13:00)
--- NOTE | 2018-02-27 13:00 | History and Physical ---
History & Physical Date Feb 27, 2018. (Allison Cordon, BRYON) Chief Complaint R ICAS, evolving CVA (Allison Cordon, BRYON) History of Present Illness The patient is a 68 year old male with PMH of HTN, who came to ED today after his family noted R arm and leg weakness and L sided facial droop, seen for eval and tx of severe R ICAS noted on CTA. Pt difficult to obtain full HPI d/t dysarthria, but states sx started around 0700 this AM. Upon arrival to ED, pt underwent CT head neg for hemorrhage, as well as CTA neck which demonstrated a string sign of R ICA. According to ED staff, pt's sx changed to being L sided arm and leg weakness, with L facial droop and L visual neglect. Pt denies pain , or smoking hx, never prior similar sx. Per , pt started a prednisone taper last week after complaining to PCP about some R arm pain/numbness, and took 60mg this morning. (Allison Cordon, BRYON) Vitals Vital Signs Past 12 Hours Date Time Temp Pulse Resp B/P (MAP) Pulse Ox O2 Delivery O2 Flow Rate FiO2 02/27/18 12:12 100 22 160/101 96 Nasal Cannula 3.0 02/27/18 12:00 96 13 163/99 97 Nasal Cannula 3.0 02/27/18 11:50 90 14 157/98 95 Nasal Cannula 3.0 02/27/18 11:44 87 17 129/84 94 Nasal Cannula 3.0 02/27/18 11:30 85 17 145/104 93 Nasal Cannula 3.0 02/27/18 11:30 98 Nasal Cannula 3.0 02/27/18 11:20 90 26 164/107 98 Nasal Cannula 3.0 02/27/18 11:10 83 20 166/100 96 Nasal Cannula 3.0 02/27/18 11:00 86 16 174/119 94 Nasal Cannula 3.0 02/27/18 10:45 86 18 160/103 93 Nasal Cannula 3.0 02/27/18 10:30 85 18 163/99 96 Nasal Cannula 3.0 02/27/18 10:06 94 02/27/18 09:57 90 20 149/98 95 Nasal Cannula 3.0 02/27/18 09:42 90 16 158/72 94 Nasal Cannula 3.0 02/27/18 09:18 87 20 159/96 98 Nasal Cannula 3.0 02/27/18 09:14 170/93 02/27/18 09:10 169/106 02/27/18 09:04 90 24 92 02/27/18 08:57 185/106 02/27/18 08:57 89 16 185/106 97 Room Air 02/27/18 08:49 95 Room Air 02/27/18 08:49 90 20 96 02/27/18 08:48 92 02/27/18 08:45 173/89 02/27/18 08:34 37.0 93 18 173/89 98 Room Air (Allison Cordon PA-C) Allergies Coded Allergies: No Known Allergies (Unverified , 02/27/18) Home Medications Scheduled Lisinopril (Zestril), 10 MG PO DAILY Problem List Medical Problems: (1) Cerebrovascular accident (CVA) (Allison Cordon, ASHELYC) Surgical / Medical History Hx Cardiac Surgery: No Hx Abdominal Surgery: No Hx Cancer Surgery: No Hx Thoracic Surgery: No Hx Orthopedic: Yes (right carpal tunnel) Hx Urinary Tract Surgery: No HX Other Surgery: No Past Medical/Surgical History: Hypertension (Allison Cordon, BRYON) Family History Unable to obtain at this time. (Allison Cordon, ASHELYC) Social History Smoking Status: Never Smoker Hx Tobacco Use In Past Year?: No Hx Alcohol Use - Type & Amnt: Yes (1 beer a day) Hx Substance Use -Type & Amnt: No (Allison Cordon, ASHELYC) Review of Systems Constitutional: No fever Eyes: No visual changes ENMT: No sore throat Respiratory: No cough, No short of breath Cardiovascular: No chest pain, No syncope, No edema, No intermittent claudication Gastrointestinal: No abdominal pain, No nausea, No vomiting Neurologic: + weakness, + numbness (Allison Cordon, ASHELYC) Physical Exam Constitutional: General Apperance: heathly-appearing, well-nourished, well-developed Level of Distress: NAD Psychiatric: Mental Status: active & alert, normal mood, normal affect Orientation: oriented except where noted, to time, to place, to person Memory: recent memory normal (vague, difficulty relating d/t dysarthria), remote memory normal Head: normocephalic, atraumatic Eyes: EOM: pertinent finding (L sided neglect, eyes drift to R) ENMT: normal ENT inspection, hearing grossly normal Neck: supple, trachea midline Lungs: Respiratory effort: no dyspnea Auscultation: no wheezing, no rhonchi, decreased breath sounds Cardiovascular: Apical Impulse: not displaced Heart Auscultation: RRR, no rubs, no gallops Peripheral Pulses: Pulses: full and equal, in all extremities except if noted Bruits: none appreciated Brachial Pulses: normal on the left, normal on the right Radial Pulse: normal on the left, normal on the right Femoral Pulse: normal on the left, normal on the right Posterior Tibialis Pulse: normal on the left, normal on the right Dorsalis Pedis Pulse: normal on the left, normal on the right Abdomen: Inspection & Palpation: soft, non-distended, no tenderness, guarding & rebound Musculoskeletal: pertinent finding (signficant L arm and leg weakness, L senior care assistant strength 2/5) Extremities: Upper Right: no cyanosis, no edema Upper Left: no cyanosis, no edema, no varicosities Lower Right: no cyanosis, no edema, no varicosities Lower Left: no cyanosis, no edema, no varicosities Neurologic: Cranial Nerves: pertinent finding (L sided visual neglect, L facial droop, L arm and leg weakness) (Allison Cordon, PA-C) Assessment and Plan ASSESSMENT and PLAN: Severe R ICAS with evolving CVA Pt eval by Dr Cornell as well, who recommends pt undergo emergent R CEA. Procedure discussed with pt and family, they are agreeable. Consent to be obtained by Dr Cornell. (Allison Cordon, PA-C) Patient was seen, examined, and chart reviewed. Agree with exam and treatment plan of the Vascular PA. Patient for emergency CEA right side. I have discussed the risks options and benefits of the procedure with the patient. The patient understands the risks options and benefits and agrees to the procedure. (Ishaan Cornell M.D.)
[2018-02-27] MEDS ORDERED: LIDOCAINE HCL 2% 2 ML VIAL (20MG/ML) ONE (13:28)
[2018-02-27] MEDS ORDERED: NEOSTIGMINE METHYLSULFATE 5 MG/5 ML SYR ONE (13:28)
[2018-02-27] MEDS ORDERED: PROPOFOL IV EMULSION 10 MG/ML 20 ML VIAL ONE (13:28)
[2018-02-27] MEDS ORDERED: GLYCOPYRROLATE INJ 0.2 MG/ML VIAL ONE (13:28)
[2018-02-27] MEDS ORDERED: DEXAMETHASONE SOD INJ 4 MG/ML VIAL ONE (13:28)
[2018-02-27] MEDS ORDERED: MIDAZOLAM HCL 1 MG/ML 2ML VIAL ONE (13:28)
[2018-02-27] MEDS ORDERED: ONDANSETRON INJ 2 MG/ML 2 ML VIAL ONE (13:28)
[2018-02-27] MEDS ORDERED: FENTANYL CITRATE INJ 50 MCG/1 ML 2 ML VIAL ONE ×3 (13:29→15:09)
[2018-02-27] MEDS ORDERED: NITROGLYCERIN 5 MG/ML 10 ML VIAL ONE (13:34)
[2018-02-27] MEDS ORDERED: EpHEDrine SULFATE INJ 50 MG/ML AMP ONE (13:34)
[2018-02-27] MEDS ORDERED: SUCCINYLCHOLINE CHLORIDE 20 MG/ML 10 ML VIAL IV ONE (13:34)
[2018-02-27] MEDS ORDERED: SODIUM CHLORIDE 0.9% INJ 10 ML VIAL ONE (13:34)
[2018-02-27] MEDS ORDERED: PNEUMOCOCCAL POLYSACCHARIDES 25 MCG/0.5 ML VIAL/SYR IM. ONE (14:00)
[2018-02-27] MEDS ORDERED: ONDANSETRON INJ 2 MG/ML 2 ML VIAL IV PRN (15:00)
[2018-02-27] MEDS ORDERED: LABETALOL HCL IV 5 MG/ML 20ML IV PRN (15:00)
[2018-02-27] MEDS ORDERED: ATROPINE SULFATE 0.1 MG/ML 5ML SYR IV PRN (15:00)
[2018-02-27] MEDS ORDERED: HYDROmorphone INJ 2 MG/ML SYR/VIAL IV PRN (15:00)
[2018-02-27] MEDS ORDERED: LABETALOL HCL IV 5 MG/ML 20ML ONE (15:10)
[2018-02-27] MEDS ORDERED: PHENYLEPHRINE HCL INJ 10 MG/ML VIAL ONE (16:01)
--- NOTE | 2018-02-27 16:16 | [facility] Post Operative Brief Note ---
Immediate Operative Summary Operative Date Feb 27, 2018. Pre-Operative Diagnosis Severe Right Internal Carotid Aartery Stenosis with evolving Cebral Vascular Accident Post-Operative Diagnosis Severe Right Internal Carotid Aartery Stenosis with evolving Cebral Vascular Accident Procedure(s) Performed Right Carotid Endarterectomy Surgeon Dr. Marleen Cornell Master Fire Control Technician Surgeon(s) Melissa Matthews MD; Gabrielle Cordon PA-C Estimated Blood Loss 80 ml Findings Consistent with Post-Op Diagnosis Specimens A. Right Carotid Plaque Drains None Anesthesia Type General Complication(s) none Disposition Accompanied Pt To Recover: no Disposition: Surgical ICU
--- NOTE | 2018-02-27 17:14 | [facility] Operative Report ---
Operative Report Operative Date Feb 27, 2018. Pre-Operative Diagnosis Severe Right Internal Carotid Aartery Stenosis with evolving Cebral Vascular Accident Post-Operative Diagnosis Severe Right Internal Carotid Aartery Stenosis with evolving Cebral Vascular Accident Procedure(s) Performed Right Carotid Endarterectomy Surgeon Dr. Marleen Cornell Creative Engagement Director Surgeon(s) Melissa Santana MD; Gabrielle Cordon PA-C Estimated Blood Loss 80 ml Specimens A. Right Carotid Plaque Drains None Anesthesia Type General Complication(s) none Disposition no Surgical ICU Indications The patient is a 68 year old male with PMH of HTN, who came to ED today after his family noted right arm and leg weakness and left sided facial droop, seen for evaluation and treatment of severe right ICAS noted on CTA. Symptoms started around 0730 this AM. According to ED staff, pt's symptoms changed to being left sided arm and leg weakness, with left facial droop and left visual neglect. The risks, benefits and alternatives were discussed with the patient and his and they wished to proceed with surgical intervention. Description of Procedure The patient was brought to the operating room and placed in the supine position. The procedure was performed under general anesthesia. He was given preoperative antibiotics. The right neck was prepped and draped in the standard sterile fashion. A longitudinal skin incision was made overlying the anterior border of the sternocleidomastoid muscle. The incision was deepened through the platysma with electrocautery. The sternocleidomastoid muscle was retracted laterally. The internal jugular vein was identified. Dissection along the medial border of the jugular vein revealed the facial vein which was ligated with 2-0 silk and transected. The common carotid, internal carotid and external carotid arteries were exposed and dissected. The vagus nerve was identified and preserved. The ansa cervicalis was transected to improve the exposure of the internal carotid artery. A vessel loop was placed around the external carotid artery. 7000 U IV heparin were administered. Three minutes after heparin administration the internal carotid artery was clamped with a Blackburn clamp and the common carotid artery was clamped with a DeBakey clamp. An arteriotomy was performed on the anterolateral surface of the common carotid artery with a # 11 blade scalpel and extended into the internal carotid artery using a Pott's scissors. A Sundt shunt was inserted into the common and internal carotid arteries. The endarterectomy plane was developed with a plaque elevator. The plaque was transected proximally in the common carotid artery. In the distal internal carotid artery, the plaque was feathered off, leaving a smooth endpoint. Eversion endarterectomy of the external carotid was performed and the carotid plaque was removed. The endarterectomized surface was gently irrigated with heparinized saline solution. All remaining free debris was removed with a fine forceps. The distal endarterectomy endpoint was inspected and a 6-0 Prolene suture was used to tack down the distal endpoint to secure the distal intima. The arteriotomy was closed using a patch angioplasty using a Bovine patch. The patch was trimmed and the patch angioplasty was performed using a continuous 6-0 Prolene suture. The suture was started at the apex of the arteriotomy in the internal carotid artery and run on each side. The patch was trimmed to the appropriate size. The shunt was removed prior to completion of the suture line. The internal carotid and external carotid were backbled. The common carotid was forwardbled. Flow was first reestablished into the external carotid artery and then into the internal carotid artery. The suture line was checked for hemostasis. Needle hole bleeding was controlled with topical application of gelfoam thrombin. After ensuring hemostasis, the platysma was closed with 3-0 Vicryl and the skin was closed with 4-0 Vicryl. Dermabond was used over the incision. The patient tolerated the procedure well and was brought to the ICU extubated in stable condition. Dr. Cornell was scrubbed and present for the entire procedure. I attest to the content of the Intraoperative Record and any orders documented therein. Any exceptions are noted below.
--- NOTE | 2018-02-27 17:48 | Critical Care Consultation ---
Critical Care Consultation Date of Consultation: Feb 27, 2018. Attending Physician: Carlo Thurman D.O. Reason for Consultation: ICU management post emergent right carotid endarterectomy History of Present Illness Patient is a 68-year-old man with a history of hypertension who this morning suffered acute onset of left facial droop and what is described as right upper extremity weakness initially. He had some difficulty speaking and ambulating and was taken by family members to the emergency department. Code stroke was called and he was evaluated by the tele-neurologist who recommended TPA. TPA was started after CT scan of the head showed possible early infarct of the right insular cortex. While TPA was infusing he developed worsening left-sided deficits. TPA was stopped and repeat head CT did not show an acute bleed. He is then sent for CT angiogram which showed severe 95-99% stenosis of the proximal right internal carotid artery. He was then taken emergently to the OR by Dr. Cornell who performed right carotid endarterectomy. He returns to the ICU extubated. He has developed some hypotension and we have started Antonio- Synephrine. Family History Hypertension Social History Smoking Status: Never Smoker Smokeless Tobacco Use: No Alcohol Use: none Drug Use: none Marital Status: Housing Status: lives with significant other Occupation Status: employed Allergies Coded Allergies: No Known Allergies (Unverified , 02/27/18) Home Medications Scheduled Lisinopril (Zestril), 10 MG PO DAILY Current Inpatient Medications Current Inpatient Medications Medications (Trade) Dose Ordered Sig/Alejandra Route Start Time Stop Time Status Last Admin Dose Admin Ioversol (Optiray 320) 125 ml UD PRN IV 02/27/18 10:45 03/03/18 10:44 Atorvastatin Calcium (Lipitor Tab) 40 mg QAM PO 02/28/18 09:00 03/30/18 08:59 Miscellaneous Information (Pharmacist Discharge Med Rec Consult) 1 ea UD PRN N/A 02/27/18 10:45 03/29/18 10:44 Miscellaneous Information (Icu Protocol For Hyperglycemia) 1 ea PRN PRN N/A 02/27/18 10:45 03/01/18 10:44 Sodium Chloride 1,000 ml @ 80 mls/hr [id number] ONCE IV 02/27/18 13:00 02/28/18 01:29 02/27/18 13:47 80 MLS/HR Ondansetron HCl (Zofran Inj) 4 mg ONE PRN IV 02/27/18 15:00 02/27/18 20:00 Atropine Sulfate (Atropine Sulfate 0.1mg/ml Inj) 0.5 mg Q1M PRN IV 02/27/18 15:00 02/27/18 20:00 Hydromorphone HCl (Dilaudid Inj) 0.25 mg Q5M PRN IV 02/27/18 15:00 02/27/18 20:00 Labetalol HCl (Normodyne IV) 5 mg Q5M PRN IV 02/27/18 15:00 02/27/18 20:00 Oxycodone/ Acetaminophen (Percocet 5-325mg Tab) FOR MODERATE PAIN ... Q4H PRN PO 02/27/18 16:45 03/13/18 16:44 Cefazolin Sodium 2000 mg/Syringe 15 ml @ 3.75 mls/ min Q8H IV 02/27/18 20:00 02/28/18 04:03 Review of Systems Constitutional: No fever Respiratory: No cough, No shortness of breath Cardiovascular: No chest pain Abdomen: No pain, No vomiting Neurologic: + balance problems Physical Exam Date Time Temp Pulse Resp B/P (MAP) Pulse Ox O2 Delivery O2 Flow Rate FiO2 02/27/18 17:20 81 19 107/59 98 02/27/18 17:15 78 16 130/77 97 02/27/18 17:10 37.2 41 14 186/97 98 02/27/18 13:35 87 27 96 02/27/18 13:31 80 13 139/79 (89) 93 02/27/18 13:31 80 13 139/79 (99) 93 Nasal Cannula 2.0 02/27/18 13:25 84 18 95 02/27/18 13:16 93 25 172/160 (171) 94 02/27/18 13:15 86 20 95 02/27/18 13:15 93 25 172/160 (164) 94 Nasal Cannula 2.0 02/27/18 13:05 88 22 94 02/27/18 13:02 87 19 175/99 (146) 91 02/27/18 12:55 88 22 96 02/27/18 12:47 89 20 154/99 (114) 91 02/27/18 12:45 83 15 91 02/27/18 12:45 89 20 154/99 (117) 91 Nasal Cannula 2.0 02/27/18 12:38 97 23 166/94 (106) 94 02/27/18 12:35 95 22 95 02/27/18 12:32 91 21 157/99 (117) 02/27/18 12:30 36.8 91 21 157/99 (118) 92 Nasal Cannula 2.0 02/27/18 12:15 100 13 95 02/27/18 12:12 100 22 160/101 96 Nasal Cannula 3.0 02/27/18 12:00 96 13 163/99 97 Nasal Cannula 3.0 02/27/18 11:50 90 14 157/98 95 Nasal Cannula 3.0 02/27/18 11:44 87 17 129/84 94 Nasal Cannula 3.0 02/27/18 11:30 85 17 145/104 93 Nasal Cannula 3.0 02/27/18 11:30 98 Nasal Cannula 3.0 02/27/18 11:20 90 26 164/107 98 Nasal Cannula 3.0 02/27/18 11:10 83 20 166/100 96 Nasal Cannula 3.0 02/27/18 11:00 86 16 174/119 94 Nasal Cannula 3.0 02/27/18 10:45 86 18 160/103 93 Nasal Cannula 3.0 02/27/18 10:30 85 18 163/99 96 Nasal Cannula 3.0 02/27/18 10:06 94 02/27/18 09:57 90 20 149/98 95 Nasal Cannula 3.0 02/27/18 09:42 90 16 158/72 94 Nasal Cannula 3.0 02/27/18 09:18 87 20 159/96 98 Nasal Cannula 3.0 02/27/18 09:14 170/93 02/27/18 09:10 169/106 02/27/18 09:04 90 24 92 02/27/18 08:57 185/106 02/27/18 08:57 89 16 185/106 97 Room Air 02/27/18 08:49 95 Room Air 02/27/18 08:49 90 20 96 02/27/18 08:48 92 02/27/18 08:45 173/89 02/27/18 08:34 37.0 93 18 173/89 98 Room Air General Appearance: no apparent distress Head: normocephalic, atraumatic Eyes: PERRLA, EOMI, sclerae normal Neck: other (Status post right carotid endarterectomy) Respiratory: breath sounds normal, clear to auscultation, no respiratory distress Cardiovasular: regular rate/rhythm, no M/G/R Abdomen: non tender, normal bowel sounds Neuro: alert, oriented x 3, focal weakness (Left hemiplegia), speech abnormal ( Dysarthric) Laboratory Results Last 24 Hours Test 02/27/18 08:47 White Blood Count 14.78 K/uL Red Blood Count 4.39 M/uL Hemoglobin 14.4 g/dL Hematocrit 41.7 % Mean Corpuscular Volume 95.0 fL Mean Corpuscular Hemoglobin 32.8 pg Mean Corpuscular Hemoglobin Concent 34.5 g/dl Platelet Count 357 K/uL Mean Platelet Volume 9.9 fL Neutrophils (%) (Auto) 86.8 % Lymphocytes (%) (Auto) 7.7 % Monocytes (%) (Auto) 4.7 % Eosinophils (%) (Auto) 0.0 % Basophils (%) (Auto) 0.1 % Neutrophils # (Auto) 12.84 K/uL Lymphocytes # (Auto) 1.14 K/uL Monocytes # (Auto) 0.69 K/uL Eosinophils # (Auto) 0.00 K/uL Basophils # (Auto) 0.01 K/uL RDW Standard Deviation 41.5 fL RDW Coefficient of Variation 12.1 % Immature Granulocyte % (Auto) 0.7 % Immature Granulocyte # (Auto) 0.10 K/uL Prothrombin Time 9.6 SECONDS Prothromb Time International Ratio 0.9 Activated Partial Thromboplast Time 26.2 SECONDS Partial Thromboplastin Ratio 1.0 Sodium Level 136 mmol/L Potassium Level 4.4 mmol/L Chloride Level 100 mmol/L Carbon Dioxide Level 28 mmol/L Anion Gap 8.0 mmol/L Blood Urea Nitrogen 20 mg/dl Creatinine 0.87 mg/dl Est Creatinine Clear Calc Drug Dose 95.3 ml/min Estimated GFR () 104.2 Estimated GFR (Non- 89.9 BUN/Creatinine Ratio 23.0 Bedside Glucose 111 mg/dl Random Glucose 106 mg/dl Estimated Average Glucose 120 mg/dl Hemoglobin A1c 5.8 % Calcium Level 9.7 mg/dl Magnesium Level 2.1 mg/dl Total Creatine Kinase 25 U/L Creatine Kinase MB < 1.0 ng/ml Creatine Kinase MB Ratio Troponin I < 0.015 ng/ml Assessment & Plan Acute right MCA stroke with severe proximal right internal carotid artery stenosis status post emergent right carotid endarterectomy. Patient has dysarthria and dense left hemiplegia with left facial weakness. Plan: Antonio-Synephrine as needed to target systolic blood pressure 110-[address] Cornell Continue to follow post-TPA protocol with serial neuro checks
--- NOTE | 2018-02-27 17:50 | Anesthesiology Progress Note ---
Anesthesia Post Op Note Date & Time Feb 27, 2018 at 17:48 Vital Signs Vital Signs Past 12 Hours Date Time Temp Pulse Resp B/P (MAP) Pulse Ox O2 Delivery O2 Flow Rate FiO2 02/27/18 17:35 37.2 74 15 93/52 96 02/27/18 17:30 79 16 95/53 94 02/27/18 17:20 81 19 107/59 98 02/27/18 17:15 78 16 130/77 97 02/27/18 17:15 78 16 130/77 (94) 97 Nasal Cannula 2.0 02/27/18 17:10 37.2 41 14 186/97 98 02/27/18 13:35 87 27 96 02/27/18 13:31 80 13 139/79 (89) 93 02/27/18 13:31 80 13 139/79 (99) 93 Nasal Cannula 2.0 02/27/18 13:25 84 18 95 02/27/18 13:16 93 25 172/160 (171) 94 02/27/18 13:15 86 20 95 02/27/18 13:15 93 25 172/160 (164) 94 Nasal Cannula 2.0 02/27/18 13:05 88 22 94 02/27/18 13:02 87 19 175/99 (146) 91 02/27/18 12:55 88 22 96 02/27/18 12:47 89 20 154/99 (114) 91 02/27/18 12:45 83 15 91 02/27/18 12:45 89 20 154/99 (117) 91 Nasal Cannula 2.0 02/27/18 12:38 97 23 166/94 (106) 94 02/27/18 12:35 95 22 95 02/27/18 12:32 91 21 157/99 (117) 02/27/18 12:30 36.8 91 21 157/99 (118) 92 Nasal Cannula 2.0 02/27/18 12:15 100 13 95 02/27/18 12:12 100 22 160/101 96 Nasal Cannula 3.0 02/27/18 12:00 96 13 163/99 97 Nasal Cannula 3.0 02/27/18 11:50 90 14 157/98 95 Nasal Cannula 3.0 02/27/18 11:44 87 17 129/84 94 Nasal Cannula 3.0 8/22/18 11:30 85 17 145/104 93 Nasal Cannula 3.0 02/27/18 11:30 98 Nasal Cannula 3.0 02/27/18 11:20 90 26 164/107 98 Nasal Cannula 3.0 02/27/18 11:10 83 20 166/100 96 Nasal Cannula 3.0 02/27/18 11:00 86 16 174/119 94 Nasal Cannula 3.0 02/27/18 10:45 86 18 160/103 93 Nasal Cannula 3.0 02/27/18 10:30 85 18 163/99 96 Nasal Cannula 3.0 02/27/18 10:06 94 02/27/18 09:57 90 20 149/98 95 Nasal Cannula 3.0 02/27/18 09:42 90 16 158/72 94 Nasal Cannula 3.0 02/27/18 09:18 87 20 159/96 98 Nasal Cannula 3.0 02/27/18 09:14 170/93 02/27/18 09:10 169/106 02/27/18 09:04 90 24 92 02/27/18 08:57 185/106 02/27/18 08:57 89 16 185/106 97 Room Air 02/27/18 08:49 95 Room Air 02/27/18 08:49 90 20 96 02/27/18 08:48 92 02/27/18 08:45 173/89 02/27/18 08:34 37.0 93 18 173/89 98 Room Air Notes Mental Status: alert / awake / arousable, participated in evaluation Pt Amnestic to Procedure: Yes Nausea / Vomiting: adequately controlled Pain: adequately controlled Airway Patency, RR, SpO2: stable & adequate BP & HR: stable & adequate Hydration State: stable & adequate Anesthetic Complications: no major complications apparent patient still with left sided hemiparesis.Ptreport given to ICU team.
[2018-02-27] MEDS: PHENYLEPHRINE HCL INJ 20 MG in DEXTROSE 5% 500ML 500 ML IV PRN ×2 (17:55→22:06)
[2018-02-27] MEDS: CEFAZOLIN IV 2,000 MG in SYRINGE 0 ML IV SCH (18:25)
[2018-02-27] MEDS: FENTANYL CITRATE INJ 50 MCG/1 ML 2 ML VIAL IV PRN ×3 (18:26→22:48)
[2018-02-27] MEDS ORDERED: CEFAZOLIN IV 2,000 MG in SYRINGE 0 ML IV SCH (20:00)
[2018-02-28] VITALS (27 sets, daily range): BP systolic 97–137; BP diastolic 55–86; PULSE 42–68; TEMP 36.5–37.1; O2SAT 95–100
[2018-02-28] MEDS: CEFAZOLIN IV 2,000 MG in SYRINGE 0 ML IV SCH (02:15)
[2018-02-28] MEDS: PHENYLEPHRINE HCL INJ 20 MG in DEXTROSE 5% 500ML 500 ML IV PRN ×5 (03:09→19:18)
[2018-02-28] MEDS ORDERED: NURSING VERBAL MED ORDER ONE ×2 (04:00→15:15)
[2018-02-28] MEDS ORDERED: SODIUM CHLORIDE 0.9% 1000ML 500 ML IV SCH (04:15)
[2018-02-28 04:33] LABS: CALCIUM 8.2 mg/dl (8.5-10.1); CREATININE 0.8 mg/dl (0.60-1.40); POTASSIUM 4.3 mmol/L (3.5-5.1)
[2018-02-28 04:36] LABS: HEMATOCRIT 37.7 % (42-52); HEMOGLOBIN 12.9 g/dL (14.0-18.0); MEAN CELL VOLUME 96.2 fL (80-100); MEAN CORPUSCULAR HEMOGLOBIN 32.9 pg (25-34); MEAN CORPUSCULAR HGB CONC 34.2 g/dl (32-36); MEAN PLATELET VOLUME 9.8 fL (7.4-10.4); PLATELET COUNT 406 K/uL (130-400); RED CELL DISTRIBUTION WIDTH CV 12.5 % (11.5-14.5); RED CELL DISTRIBUTION WIDTH SD 43.2 fL (36.4-46.3); WHITE BLOOD COUNT 25.91 K/uL (4.8-10.8)
[2018-02-28] MEDS: SODIUM CHLORIDE 0.9% 1000ML 1,000 ML IV SCH ×4 (05:02→22:20)
[2018-02-28 05:03] LABS: BASO ABS # 0.01 K/uL (0-0.2); EOS ABS # 0.01 K/uL (0-0.5); IG# 0.14 K/uL (0.00-0.02); LYMPH % 8.3 %; LYMPH ABS # 2.15 K/uL (1.2-3.4); MONO % 7.7 %; NEUT % 83.5 %
--- NOTE | 2018-02-28 07:57 | Anesthesiology Progress Note ---
Anesthesia Post Op Note Date & Time Feb 28, 2018 at 07:57 Vital Signs Pain Intensity: 9.0 Vital Signs Past 12 Hours Date Time Temp Pulse Resp B/P (MAP) Pulse Ox O2 Delivery O2 Flow Rate FiO2 02/28/18 07:00 47 15 132/72 (92) 99 Nasal Cannula 2.0 02/28/18 07:00 47 15 132/72 (92) 99 Mechanical Ventilator 30 02/28/18 06:00 44 14 116/65 (82) 98 Nasal Cannula 2.0 02/28/18 05:00 43 13 118/63 (81) 98 Nasal Cannula 2.0 02/28/18 04:01 36.7 48 16 121/69 (86) 99 Nasal Cannula 2.0 02/28/18 04:00 96 Nasal Cannula 2.0 02/28/18 03:00 42 15 113/64 (80) 99 Nasal Cannula 2.0 02/28/18 02:00 47 13 126/68 (87) 100 Nasal Cannula 2.0 02/28/18 01:00 44 12 117/65 (82) 99 Nasal Cannula 2.0 02/28/18 00:45 44 15 116/62 (80) 98 Nasal Cannula 2.0 02/28/18 00:00 36.5 47 12 108/60 (76) 98 Nasal Cannula 2.0 02/28/18 00:00 98 Nasal Cannula 2.0 02/27/18 23:00 51 16 108/61 (77) 97 Nasal Cannula 2.0 02/27/18 22:45 51 15 111/58 (75) 100 Nasal Cannula 2.0 02/27/18 22:11 54 16 109/67 (81) 98 Nasal Cannula 2.0 02/27/18 22:00 59 17 90/52 (65) 98 Nasal Cannula 2.0 02/27/18 21:00 36.5 55 13 111/64 (80) 96 Nasal Cannula 2.0 02/27/18 20:00 36.5 58 18 118/64 (82) 100 Nasal Cannula 2.0 02/27/18 20:00 99 Nasal Cannula 2.0 Notes Mental Status: alert / awake / arousable, participated in evaluation Pt Amnestic to Procedure: Yes Nausea / Vomiting: adequately controlled Pain: adequately controlled Airway Patency, RR, SpO2: stable & adequate BP & HR: stable & adequate Hydration State: stable & adequate Anesthetic Complications: no major complications apparent
[2018-02-28] MEDS: FENTANYL CITRATE INJ 50 MCG/1 ML 2 ML VIAL IV PRN (08:00)
[2018-02-28] MEDS ORDERED: ATORVASTATIN 40 MG TAB PO SCH (09:00)
[2018-02-28] MEDS ORDERED: KETOROLAC TROMETHAMINE 15 MG/ML VIAL IV. STA (09:06)
--- NOTE | 2018-02-28 09:25 | Neurology Consultation ---
Neurology Consultation Date of Consultation: Feb 28, 2018. Attending Physician: Carlo Thurman D.O. Primary Care Physician: aGl Cruz PA-C Reason for Consultation: Consultation for stroke status post IV TPA History of Present Illness Source: patient, hospital records This is a 68-year-old male who presents for the above evaluation. Patient presented with acute aphasia and left facial droop and progressive fluctuating left-sided weakness. The patient was felt to be a good candidate for IV TPA after her stroke alert was called. IV TPA was given. CTA of the head and neck showed a severe critical stenosis of 99% on the right ICA and patient was taken to the operating room for an emergent right endarterectomy due to a symptomatic severe right ICA stenosis causing stroke. Patient was noted to have some fluctuating left-sided weakness before and after surgery. Patient did have hypotension after surgery likely causing worsening left-sided weakness. Patient was placed on vasopressors. Patient reports that he has been having right arm and right shoulder pain for the last month. He was seen by his primary care physician a couple weeks ago and was placed on steroids. CT of the head report and images were reviewed by myself and showed possible right insular cortex ischemic stroke. CTA showed 99% stenosis of the right ICA Total cholesterol 163, LDL 70, HDL 72, triglycerides 107. Hemoglobin A1c 5.8 Echocardiogram unremarkable for cardioembolic sources for stroke. Past Medical/Surgical History Hypertension Family History Hypertension Social History Normal end up in his activities of daily living. No tobacco use Smokeless Tobacco Use: No Alcohol Use: none Drug Use: none Marital Status: Housing Status: lives with significant other Occupation Status: employed Allergies Coded Allergies: No Known Allergies (Unverified , 02/27/18) Current Inpatient Medications Current Inpatient Medications Medications (Trade) Dose Ordered Sig/Alejandra Route Start Time Stop Time Status Last Admin Dose Admin Ioversol (Optiray 320) 125 ml UD PRN IV 02/27/18 10:45 03/03/18 10:44 Atorvastatin Calcium (Lipitor Tab) 40 mg QAM PO 02/28/18 09:00 03/30/18 08:59 Miscellaneous Information (Pharmacist Discharge Med Rec Consult) 1 ea UD PRN N/A 02/27/18 10:45 03/29/18 10:44 Miscellaneous Information ([facility] Protocol For Hyperglycemia) 1 ea PRN PRN N/A 02/27/18 10:45 03/01/18 10:44 Oxycodone/ Acetaminophen (Percocet 5-325mg Tab) FOR MODERATE PAIN ... Q4H PRN PO 02/27/18 16:45 03/13/18 16:44 Phenylephrine HCl 20 mg/Dextrose 502 ml @ 0 mls/hr Q0M PRN IV 02/27/18 17:30 03/29/18 17:29 02/28/18 05:41 158 MLS/HR Fentanyl Citrate (Fentanyl Inj) 25 mcg Q2H PRN IV 02/27/18 18:15 03/13/18 18:14 02/28/18 08:00 25 MCG Sodium Chloride 1,000 ml @ 150 mls/hr Q6H40M IV 02/28/18 04:30 03/30/18 04:29 02/28/18 08:31 150 MLS/HR Review of Systems Complete review of systems otherwise negative except for the above-noted HPI Physical Exam Vital Signs (Past 24 Hrs): Date Time Temp Pulse Resp B/P (MAP) Pulse Ox O2 Delivery O2 Flow Rate FiO2 02/28/18 08:00 37.1 51 19 127/74 (91) 100 Room Air 122/68 (86) 02/28/18 07:00 47 15 132/72 (92) 99 Nasal Cannula 2.0 02/28/18 07:00 47 15 132/72 (92) 99 Mechanical Ventilator 30 02/28/18 06:00 44 14 116/65 (82) 98 Nasal Cannula 2.0 02/28/18 05:00 43 13 118/63 (81) 98 Nasal Cannula 2.0 02/28/18 04:01 36.7 48 16 121/69 (86) 99 Nasal Cannula 2.0 02/28/18 04:00 96 Nasal Cannula 2.0 02/28/18 03:00 42 15 113/64 (80) 99 Nasal Cannula 2.0 02/28/18 02:00 47 13 126/68 (87) 100 Nasal Cannula 2.0 02/28/18 01:00 44 12 117/65 (82) 99 Nasal Cannula 2.0 02/28/18 00:45 44 15 116/62 (80) 98 Nasal Cannula 2.0 02/28/18 00:00 36.5 47 12 108/60 (76) 98 Nasal Cannula 2.0 02/28/18 00:00 98 Nasal Cannula 2.0 02/27/18 23:00 51 16 108/61 (77) 97 Nasal Cannula 2.0 02/27/18 22:45 51 15 111/58 (75) 100 Nasal Cannula 2.0 02/27/18 22:11 54 16 109/67 (81) 98 Nasal Cannula 2.0 02/27/18 22:00 59 17 90/52 (65) 98 Nasal Cannula 2.0 02/27/18 21:00 36.5 55 13 111/64 (80) 96 Nasal Cannula 2.0 02/27/18 20:00 36.5 58 18 118/64 (82) 100 Nasal Cannula 2.0 02/27/18 20:00 99 Nasal Cannula 2.0 02/27/18 19:00 58 13 132/70 (90) 100 Nasal Cannula 2.0 02/27/18 18:30 53 27 120/64 (82) 99 Nasal Cannula 2.0 02/27/18 18:00 37.0 66 18 99/55 (70) 95 Nasal Cannula 2.0 02/27/18 17:58 98 Nasal Cannula 2.0 02/27/18 17:45 76 15 90/62 (71) 97 Nasal Cannula 2.0 02/27/18 17:35 37.2 74 15 93/52 96 02/27/18 17:30 79 16 95/53 94 02/27/18 17:20 81 19 107/59 98 02/27/18 17:15 78 16 130/77 97 02/27/18 17:15 78 16 130/77 (94) 97 Nasal Cannula 2.0 02/27/18 17:10 37.2 41 14 186/97 98 02/27/18 13:35 87 27 96 02/27/18 13:31 80 13 139/79 (89) 93 02/27/18 13:31 80 13 139/79 (99) 93 Nasal Cannula 2.0 02/27/18 13:25 84 18 95 02/27/18 13:16 93 25 172/160 (171) 94 02/27/18 13:15 86 20 95 02/27/18 13:15 93 25 172/160 (164) 94 Nasal Cannula 2.0 02/27/18 13:05 88 22 94 02/27/18 13:02 87 19 175/99 (146) 91 02/27/18 12:55 88 22 96 02/27/18 12:47 89 20 154/99 (114) 91 02/27/18 12:45 83 15 91 02/27/18 12:45 89 20 154/99 (117) 91 Nasal Cannula 2.0 02/27/18 12:38 97 23 166/94 (106) 94 02/27/18 12:35 95 22 95 02/27/18 12:32 91 21 157/99 (117) 02/27/18 12:30 36.8 91 21 157/99 (118) 92 Nasal Cannula 2.0 02/27/18 12:15 100 13 95 02/27/18 12:12 100 22 160/101 96 Nasal Cannula 3.0 02/27/18 12:00 96 13 163/99 97 Nasal Cannula 3.0 02/27/18 11:50 90 14 157/98 95 Nasal Cannula 3.0 02/27/18 11:44 87 17 129/84 94 Nasal Cannula 3.0 02/27/18 11:30 85 17 145/104 93 Nasal Cannula 3.0 02/27/18 11:30 98 Nasal Cannula 3.0 02/27/18 11:20 90 26 164/107 98 Nasal Cannula 3.0 02/27/18 11:10 83 20 166/100 96 Nasal Cannula 3.0 02/27/18 11:00 86 16 174/119 94 Nasal Cannula 3.0 02/27/18 10:45 86 18 160/103 93 Nasal Cannula 3.0 02/27/18 10:30 85 18 163/99 96 Nasal Cannula 3.0 02/27/18 10:06 94 02/27/18 09:57 90 20 149/98 95 Nasal Cannula 3.0 02/27/18 09:42 90 16 158/72 94 Nasal Cannula 3.0 02/27/18 09:18 87 20 159/96 98 Nasal Cannula 3.0 02/27/18 09:14 170/93 02/27/18 09:10 169/106 02/27/18 09:04 90 24 92 Gen.: Patient is alert and oriented in no acute distress lying in bed Heart: Regular rate and rhythm Extremities: No gross deformities or rashes noted Neurological examination: Mental status: Patient is alert and oriented to person place and time. Able to give his own history. Attention concentration normal for the situation. Remote and recent memory seem intact Speech: Mild expressive aphasia, speech does not seem fully fluent and there was some hesitancy getting his words out which potentially could be secondary to other factors such as recent surgery. Mild dysarthria. Cranial nerves: Funduscopic examination was difficult to visualize but no signs of papilledema. Pupils equally round and reactive to light. Extraocular muscles intact without nystagmus. Moderate to severe left lower facial droop. May have some difficulty closing his left eye which also brings into question possible upper facial weakness. Facial sensation intact. Tongue midline. Good palatal elevation. Decent shoulder shrug bilaterally. Hearing grossly intact voice. Strength: 5/5 both proximal and distal on the right upper and lower extremity with some limitation of right upper extremity due to right arm and shoulder pain. Left upper extremity 3/5, left lower extremity 4+/5. tone is normal. Sensation: Grossly intact to light touch in all extremities. No sensory extinction Deep tendon reflexes: +1 in bilateral biceps and patellar. Coordination: Limited finger to nose due to weakness on the left and pain on the right. No dysmetria or ataxia noted. Station within the bed is normal. Laboratory Results Past 24 Hours: 02/28/18 03:52 Red Blood Count 3.92, Mean Corpuscular Volume 96.2, Mean Corpuscular Hemoglobin 32.9, Mean Corpuscular Hemoglobin Concent 34.2, Mean Platelet Volume 9.8, Neutrophils (%) (Auto) 83.5, Lymphocytes (%) (Auto) 8.3, Monocytes (%) (Auto) 7.7, Eosinophils (%) (Auto) 0.0, Basophils (%) (Auto) 0.0, Neutrophils # (Auto) 21.60, Lymphocytes # (Auto) 2.15, Monocytes # (Auto) 2.00, Eosinophils # (Auto) 0.01, Basophils # (Auto) 0.01 02/28/18 03:52 Test 02/28/18 03:52 02/28/18 06:32 White Blood Count 25.91 K/uL (4.8-10.8) Red Blood Count 3.92 M/uL (4.7-6.1) Hemoglobin 12.9 g/dL (14.0-18.0) Hematocrit 37.7 % (42-52) Mean Corpuscular Volume 96.2 fL (80-100) Mean Corpuscular Hemoglobin 32.9 pg (25-34) Mean Corpuscular Hemoglobin Concent 34.2 g/dl (32-36) Platelet Count 406 K/uL (130-400) Mean Platelet Volume 9.8 fL (7.4-10.4) Neutrophils (%) (Auto) 83.5 % Lymphocytes (%) (Auto) 8.3 % Monocytes (%) (Auto) 7.7 % Eosinophils (%) (Auto) 0.0 % Basophils (%) (Auto) 0.0 % Neutrophils # (Auto) 21.60 K/uL (1.4-6.5) Lymphocytes # (Auto) 2.15 K/uL (1.2-3.4) Monocytes # (Auto) 2.00 K/uL (0.11-0.59) Eosinophils # (Auto) 0.01 K/uL (0-0.5) Basophils # (Auto) 0.01 K/uL (0-0.2) RDW Standard Deviation 43.2 fL (36.4-46.3) RDW Coefficient of Variation 12.5 % (11.5-14.5) Immature Granulocyte % (Auto) 0.5 % Immature Granulocyte # (Auto) 0.14 K/uL (0.00-0.02) Anion Gap 8.0 mmol/L (3-11) Est Creatinine Clear Calc Drug Dose 103.6 ml/min Estimated GFR () 107.9 Estimated GFR (Non- 93.1 BUN/Creatinine Ratio 22.5 (10-20) Calcium Level 8.2 mg/dl (8.5-10.1) Triglycerides Level 107 mg/dl (0-150) Cholesterol Level 163 mg/dl (0-200) HDL Cholesterol 72 mg/dl LDL Cholesterol, Calculated 70 mg/dl VLDL Cholesterol, Calculated 21 mg/dl Cholesterol/HDL Ratio 2.3 Bedside Glucose 139 mg/dl (70-99) Date/Time Source Procedure Growth Status 02/27/18 12:40 Nasal MRSA DNA Surveillance Screen - Final Specimen Negative for MRSA by DNA Probe Complete Imaging As noted above in HPI Impression This is a 68-year-old male with an acute right hemispheric ischemic stroke secondary to a critical right ICA stenosis. Residual neurological deficits include mild dysarthria and possible expressive aphasia, mild to moderate left hemiplegia, moderate to severe left facial weakness. Known stroke risk factors include hypertension and critical right ICA stenosis status post emergent endarterectomy postop day 1. Plan Recommend 24-hour neuro imaging status post IV TPA to rule out hemorrhagic conversion. Recommend nonemergent MRI of the brain when able. MRI can be the 24 hour neuro imaging if able. If no hemorrhagic conversion on 24 hour follow-up neuroimaging, recommend starting Plavix 75 mg daily for stroke prevention (so long as there is no contraindications from vascular surgery). Recommend MAPS 80-90 for brain perfusion (MAPs 90-110 would also be acceptable from a neurology stroke standpoint, but unlikely to be compatible with recent endarterectomy). Hypotension could place the patient at risk for expanded ischemic changes and worsening stroke symptoms including hemiplegia. Keep patient well-hydrated to avoid hypotension and stroke extension. Follow-up PT/OT and speech therapies for discharge planning. Anticipate patient will need inpatient rehab. Stroke risk factor modifications and recommendations: Blood pressure recommendations for the first month post hospital discharge 140/ 90-110/80, and after that blood pressure recommendations 130/80-100/70 Total cholesterol goal 100- 200 and LDL goal less than 100 (at goal) (patient likely does not need aggressive lipid management with atorvastatin, and could reasonably be put on lower dose pravastatin 10 mg daily for endothelial stabilization status post stroke) Hemoglobin A1c goal less than 7 (at goal) Encourage cardiovascular exercise at least 3 times a week for 30 minutes. Follow-up in neurology clinic in 1 month for post stroke hospital follow-up. If there is any questions or concerns, feel free to call/page me.
[2018-02-28] MEDS: PANTOprazole INJ 40 MG in SYRINGE 0 ML IV SCH (09:50)
--- NOTE | 2018-02-28 11:14 | DIAGNOSTIC IMAGING REPORT ---
MRI OF THE BRAIN WITHOUT CONTRAST CLINICAL HISTORY: Cerebrovascular accident S/P tPA and S/P CEA. COMPARISON STUDY: CT of the head and CTA of the head February 27, 2018. TECHNIQUE: Utilizing a 1.5 Wen magnet and dedicated coil, multiplanar, multiecho imaging of the brain was performed without IV contrast. FINDINGS: Note is made of a 4.1 x 3.1 cm focus of restricted diffusion within the right frontotemporal region consistent with acute infarct. There is minimal sulcal effacement. There is no midline shift or compression of the right lateral ventricle. In addition, there is a 3.6 x 2.6 cm acute infarct within the superior right frontal lobe. Mild ventricular dilatation is due to atrophy. The basilar cisterns are patent. There are no extra-axial collections. Flow-voids for the major intracranial vessels are present. Periventricular T2 hyperintensity suggests moderate small vessel disease. There is a frontal and ethmoid sinus mucosal thickening. Calvarial signal is maintained. Orbits are unremarkable. IMPRESSION: 4.1 x 3.1 cm acute infarct within the right frontotemporal region within the right MCA distribution with minimal mass effect . No evidence of hemorrhage. Additional 3.6 x 2.6 cm superior right frontal lobe acute infarct, possibly within the anterior cerebral artery distribution. Electronically signed by: Dl Cardenas M.D. 02/28/2018 11:12 AM Dictated Date/Time: 02/28/2018 11:02 AM
--- NOTE | 2018-02-28 12:12 | Critical Care Progress Note ---
Critical Care Progress Note Date of Service Feb 28, 2018. Attending Dr Grant Subjective Patient is now postop day #1 emergent right carotid endarterectomy for critical right ICA stenosis resulting in stroke. He still has some left-sided weakness but this is markedly improved from yesterday. He also still has an obvious left facial weakness. Overall he has improved significantly from a neurologic standpoint compared to the immediate postop period yesterday. He had an MRI today which shows 2 areas of acute stroke on the right side without evidence of hemorrhage. Neurology recommends maintaining mean arterial pressure 80-90 and he is still requiring phenylephrine to do that. Neurology also recommends starting Plavix if okay with vascular surgery. Objective Awake alert no acute distress Head normocephalic atraumatic, pupils round reactive sclera anicteric Lungs clear bilaterally Cardiac regular rhythm no murmurs rubs or gallops Abdomen soft nontender no masses no organomegaly Neuro: Still has some mild left-sided weakness but is able to lift arms and legs well off the bed in contrast to yesterday. He still has left facial droop. Speech sounds less dysarthric than yesterday. Assessment & Plan Impression: 1. Acute right MCA CVA due to critical right internal carotid artery stenosis with embolization, postop day #1 right carotid endarterectomy. 24 hours status post administration of TPA and follow-up imaging shows no hemorrhage. He is still requiring phenylephrine to maintain recommended mean arterial pressure 80- 90. Plan: 1. Will start Plavix 75 mg daily 2. Start PT and OT and obtain swallowing eval 3. Wean phenylephrine as tolerated to above parameters Data Medications: Current Inpatient Medications Medications (Trade) Dose Ordered Sig/Alejandra Route Start Time Stop Time Status Last Admin Dose Admin Ioversol (Optiray 320) 125 ml UD PRN IV 02/27/18 10:45 03/03/18 10:44 Atorvastatin Calcium (Lipitor Tab) 40 mg QAM PO 02/28/18 09:00 03/30/18 08:59 Miscellaneous Information (Pharmacist Discharge Med Rec Consult) 1 ea UD PRN N/A 02/27/18 10:45 03/29/18 10:44 Miscellaneous Information ([facility] Protocol For Hyperglycemia) 1 ea PRN PRN N/A 02/27/18 10:45 03/01/18 10:44 Oxycodone/ Acetaminophen (Percocet 5-325mg Tab) FOR MODERATE PAIN ... Q4H PRN PO 02/27/18 16:45 03/13/18 16:44 Phenylephrine HCl 20 mg/Dextrose 502 ml @ 0 mls/hr Q0M PRN IV 02/27/18 17:30 03/29/18 17:29 02/28/18 10:06 101 MLS/HR Fentanyl Citrate (Fentanyl Inj) 25 mcg Q2H PRN IV 02/27/18 18:15 03/13/18 18:14 02/28/18 08:00 25 MCG Sodium Chloride 1,000 ml @ 150 mls/hr Q6H40M IV 02/28/18 04:30 03/30/18 04:29 02/28/18 08:31 150 MLS/HR Pantoprazole Sodium 40 mg/ Syringe 10 ml @ 5 mls/min DAILY@11 IV 02/28/18 11:00 03/30/18 10:59 02/28/18 09:50 5 MLS/MIN Vital Signs: Date Time Temp Pulse Resp B/P (MAP) Pulse Ox O2 Delivery O2 Flow Rate FiO2 02/28/18 09:00 58 16 102/60 (74) 98 Room Air 02/28/18 08:00 37.1 51 19 127/74 (91) 100 Room Air 122/68 (86) 02/28/18 07:00 47 15 132/72 (92) 99 Nasal Cannula 2.0 02/28/18 07:00 47 15 132/72 (92) 99 Mechanical Ventilator 30 02/28/18 06:00 44 14 116/65 (82) 98 Nasal Cannula 2.0 02/28/18 05:00 43 13 118/63 (81) 98 Nasal Cannula 2.0 02/28/18 04:01 36.7 48 16 121/69 (86) 99 Nasal Cannula 2.0 02/28/18 04:00 96 Nasal Cannula 2.0 02/28/18 03:00 42 15 113/64 (80) 99 Nasal Cannula 2.0 02/28/18 02:00 47 13 126/68 (87) 100 Nasal Cannula 2.0 02/28/18 01:00 44 12 117/65 (82) 99 Nasal Cannula 2.0 02/28/18 00:45 44 15 116/62 (80) 98 Nasal Cannula 2.0 02/28/18 00:00 36.5 47 12 108/60 (76) 98 Nasal Cannula 2.0 02/28/18 00:00 98 Nasal Cannula 2.0 02/27/18 23:00 51 16 108/61 (77) 97 Nasal Cannula 2.0 02/27/18 22:45 51 15 111/58 (75) 100 Nasal Cannula 2.0 02/27/18 22:11 54 16 109/67 (81) 98 Nasal Cannula 2.0 02/27/18 22:00 59 17 90/52 (65) 98 Nasal Cannula 2.0 02/27/18 21:00 36.5 55 13 111/64 (80) 96 Nasal Cannula 2.0 02/27/18 20:00 36.5 58 18 118/64 (82) 100 Nasal Cannula 2.0 02/27/18 20:00 99 Nasal Cannula 2.0 02/27/18 19:00 58 13 132/70 (90) 100 Nasal Cannula 2.0 02/27/18 18:30 53 27 120/64 (82) 99 Nasal Cannula 2.0 02/27/18 18:00 37.0 66 18 99/55 (70) 95 Nasal Cannula 2.0 02/27/18 17:58 98 Nasal Cannula 2.0 02/27/18 17:45 76 15 90/62 (71) 97 Nasal Cannula 2.0 02/27/18 17:35 37.2 74 15 93/52 96 02/27/18 17:30 79 16 95/53 94 02/27/18 17:20 81 19 107/59 98 02/27/18 17:15 78 16 130/77 97 02/27/18 17:15 78 16 130/77 (94) 97 Nasal Cannula 2.0 02/27/18 17:10 37.2 41 14 186/97 98 02/27/18 13:35 87 27 96 02/27/18 13:31 80 13 139/79 (89) 93 02/27/18 13:31 80 13 139/79 (99) 93 Nasal Cannula 2.0 02/27/18 13:25 84 18 95 02/27/18 13:16 93 25 172/160 (171) 94 02/27/18 13:15 86 20 95 02/27/18 13:15 93 25 172/160 (164) 94 Nasal Cannula 2.0 02/27/18 13:05 88 22 94 02/27/18 13:02 87 19 175/99 (146) 91 02/27/18 12:55 88 22 96 02/27/18 12:47 89 20 154/99 (114) 91 02/27/18 12:45 83 15 91 02/27/18 12:45 89 20 154/99 (117) 91 Nasal Cannula 2.0 02/27/18 12:38 97 23 166/94 (106) 94 02/27/18 12:35 95 22 95 02/27/18 12:32 91 21 157/99 (117) 02/27/18 12:30 36.8 91 21 157/99 (118) 92 Nasal Cannula 2.0 02/27/18 12:15 100 13 95 02/27/18 12:12 100 22 160/101 96 Nasal Cannula 3.0 Laboratory Results: Last 24 Hours Test 02/27/18 18:00 02/28/18 00:18 02/28/18 00:20 02/28/18 03:52 Bedside Glucose 76 mg/dl 27 mg/dl 164 mg/dl White Blood Count 25.91 K/uL Red Blood Count 3.92 M/uL Hemoglobin 12.9 g/dL Hematocrit 37.7 % Mean Corpuscular Volume 96.2 fL Mean Corpuscular Hemoglobin 32.9 pg Mean Corpuscular Hemoglobin Concent 34.2 g/dl Platelet Count 406 K/uL Mean Platelet Volume 9.8 fL Neutrophils (%) (Auto) 83.5 % Lymphocytes (%) (Auto) 8.3 % Monocytes (%) (Auto) 7.7 % Eosinophils (%) (Auto) 0.0 % Basophils (%) (Auto) 0.0 % Neutrophils # (Auto) 21.60 K/uL Lymphocytes # (Auto) 2.15 K/uL Monocytes # (Auto) 2.00 K/uL Eosinophils # (Auto) 0.01 K/uL Basophils # (Auto) 0.01 K/uL RDW Standard Deviation 43.2 fL RDW Coefficient of Variation 12.5 % Immature Granulocyte % (Auto) 0.5 % Immature Granulocyte # (Auto) 0.14 K/uL Sodium Level 136 mmol/L Potassium Level 4.3 mmol/L Chloride Level 104 mmol/L Carbon Dioxide Level 24 mmol/L Anion Gap 8.0 mmol/L Blood Urea Nitrogen 18 mg/dl Creatinine 0.80 mg/dl Est Creatinine Clear Calc Drug Dose 103.6 ml/min Estimated GFR () 107.9 Estimated GFR (Non- 93.1 BUN/Creatinine Ratio 22.5 Random Glucose 159 mg/dl Calcium Level 8.2 mg/dl Triglycerides Level 107 mg/dl Cholesterol Level 163 mg/dl HDL Cholesterol 72 mg/dl LDL Cholesterol, Calculated 70 mg/dl VLDL Cholesterol, Calculated 21 mg/dl Cholesterol/HDL Ratio 2.3 Test 02/28/18 06:32 Bedside Glucose 139 mg/dl
--- NOTE | 2018-02-28 12:58 | Progress Note ---
Progress Note Date of Service: Feb 28, 2018. Subjective Does not verbalize any complaints Objective Vital Signs Vital Signs Past 12 Hours Date Time Temp Pulse Resp B/P (MAP) Pulse Ox O2 Delivery O2 Flow Rate FiO2 02/28/18 12:25 96 Room Air 02/28/18 12:00 61 18 113/59 (77) 98 Room Air 02/28/18 11:30 59 21 133/72 (92) 96 Room Air 02/28/18 09:30 37.1 60 20 101/75 (84) 96 Room Air 02/28/18 09:00 58 16 102/60 (74) 98 Room Air 02/28/18 08:00 37.1 51 19 127/74 (91) 100 Room Air 122/68 (86) 02/28/18 08:00 Room Air 02/28/18 07:00 47 15 132/72 (92) 99 Nasal Cannula 2.0 02/28/18 07:00 47 15 132/72 (92) 99 Mechanical Ventilator 30 02/28/18 06:00 44 14 116/65 (82) 98 Nasal Cannula 2.0 02/28/18 05:00 43 13 118/63 (81) 98 Nasal Cannula 2.0 02/28/18 04:01 36.7 48 16 121/69 (86) 99 Nasal Cannula 2.0 02/28/18 04:00 96 Nasal Cannula 2.0 02/28/18 03:00 42 15 113/64 (80) 99 Nasal Cannula 2.0 02/28/18 02:00 47 13 126/68 (87) 100 Nasal Cannula 2.0 02/28/18 01:00 44 12 117/65 (82) 99 Nasal Cannula 2.0 Exam Awake and alert VSS Afebrile Does have a component of aphasia Strength is 4/5 in left upper extremity, 5/5 left lower extremity. Much more alert and follow commands Undergoing swallowing study at present Laboratory and Microbiology Results Past 24 Hours Test 02/27/18 18:00 02/28/18 00:18 02/28/18 00:20 02/28/18 03:52 Range/Units Bedside Glucose 76 27 164 70-99 mg/dl White Blood Count 25.91 4.8-10.8 K/uL Red Blood Count 3.92 4.7-6.1 M/uL Hemoglobin 12.9 14.0-18.0 g/dL Hematocrit 37.7 42-52 % Mean Corpuscular Volume 96.2 80-100 fL Mean Corpuscular Hemoglobin 32.9 25-34 pg Mean Corpuscular Hemoglobin Concent 34.2 32-36 g/dl Platelet Count 406 130-400 K/uL Mean Platelet Volume 9.8 7.4-10.4 fL Neutrophils (%) (Auto) 83.5 % Lymphocytes (%) (Auto) 8.3 % Monocytes (%) (Auto) 7.7 % Eosinophils (%) (Auto) 0.0 % Basophils (%) (Auto) 0.0 % Neutrophils # (Auto) 21.60 1.4-6.5 K/uL Lymphocytes # (Auto) 2.15 1.2-3.4 K/uL Monocytes # (Auto) 2.00 0.11-0.59 K/uL Eosinophils # (Auto) 0.01 0-0.5 K/uL Basophils # (Auto) 0.01 0-0.2 K/uL RDW Standard Deviation 43.2 36.4-46.3 fL RDW Coefficient of Variation 12.5 11.5-14.5 % Immature Granulocyte % (Auto) 0.5 % Immature Granulocyte # (Auto) 0.14 0.00-0.02 K/uL Sodium Level 136 136-145 mmol/L Potassium Level 4.3 3.5-5.1 mmol/L Chloride Level 104 98-107 mmol/L Carbon Dioxide Level 24 21-32 mmol/L Anion Gap 8.0 3-11 mmol/L Blood Urea Nitrogen 18 7-18 mg/dl Creatinine 0.80 0.60-1.40 mg/dl Est Creatinine Clear Calc Drug Dose 103.6 ml/min Estimated GFR () 107.9 Estimated GFR (Non- 93.1 BUN/Creatinine Ratio 22.5 10-20 Random Glucose 159 70-99 mg/dl Calcium Level 8.2 8.5-10.1 mg/dl Triglycerides Level 107 0-150 mg/dl Cholesterol Level 163 0-200 mg/dl HDL Cholesterol 72 mg/dl LDL Cholesterol, Calculated 70 mg/dl VLDL Cholesterol, Calculated 21 mg/dl Cholesterol/HDL Ratio 2.3 Test 02/28/18 06:32 Range/Units Bedside Glucose 139 70-99 mg/dl Imp: Post emergent CEA Plan: Doing well post op. Can start plavix from vascular standpoint and may run MAPs in the 80-90 range.
--- NOTE | 2018-02-28 14:56 | Hospitalist Progress Note ---
Hospitalist Progress Note Date of Service Feb 28, 2018. Subjective Pt evaluation today including: conversation w/ patient, physical exam, chart review, lab review, review of studies, conversation w/ securities consultant (group rounding with ICU team and Neurology), review of inpatient medication list Patient seen and evaluated. No acute events overnight. Remains on pressor support to maintain appropriate BP/MAP. Seems to have worsening neuro symptoms when BP lower. LUE remains weaker but does have increased movement compared to yesterday. Good strength and movement of the LLE and it appears to almost be resolved. Continues to have facial droop and likely some word finding. Resorts a lot to just shaking head yes/no but if given time he answers appropriately. Reports still having the R shoulder pain that radiates down the arm. States its most intense in the shoulder and no pain into the neck. He denies imaging being done. Constitutional: No fever, No chills Respiratory: No cough, No shortness of breath Cardiovascular: No chest pain Abdomen: No pain, No nausea, No vomiting, No diarrhea, No constipation Musculoskeletal: + joint pain (R shoulder pain), No swelling, No calf pain Neurologic: + weakness (L weakness of RUE) Heme: No abnormal bleeding/bruising Medications Current Inpatient Medications Medications (Trade) Dose Ordered Sig/Alejandra Route Start Time Stop Time Status Last Admin Dose Admin Ioversol (Optiray 320) 125 ml UD PRN IV 02/27/18 10:45 03/03/18 10:44 Miscellaneous Information (Pharmacist Discharge Med Rec Consult) 1 ea UD PRN N/A 02/27/18 10:45 03/29/18 10:44 Miscellaneous Information (Icu Protocol For Hyperglycemia) 1 ea PRN PRN N/A 02/27/18 10:45 03/01/18 10:44 Oxycodone/ Acetaminophen (Percocet 5-325mg Tab) FOR MODERATE PAIN ... Q4H PRN PO 02/27/18 16:45 03/13/18 16:44 Phenylephrine HCl 20 mg/Dextrose 502 ml @ 0 mls/hr Q0M PRN IV 02/27/18 17:30 03/29/18 17:29 02/28/18 10:06 101 MLS/HR Fentanyl Citrate (Fentanyl Inj) 25 mcg Q2H PRN IV 02/27/18 18:15 03/13/18 18:14 02/28/18 08:00 25 MCG Sodium Chloride 1,000 ml @ 150 mls/hr Q6H40M IV 02/28/18 04:30 03/30/18 04:29 02/28/18 08:31 150 MLS/HR Pantoprazole Sodium 40 mg/ Syringe 10 ml @ 5 mls/min DAILY@11 IV 02/28/18 11:00 03/30/18 10:59 02/28/18 09:50 5 MLS/MIN Clopidogrel Bisulfate (plAVix TAB) 75 mg DAILY PO 03/01/18 09:00 03/31/18 08:59 Pravastatin Sodium (Pravachol Tab) 10 mg DAILY@17 PO 02/28/18 17:00 03/30/18 16:59 UNV Objective Vital Signs Date Time Temp Pulse Resp B/P (MAP) Pulse Ox O2 Delivery O2 Flow Rate FiO2 02/28/18 14:00 68 23 110/66 (81) 98 Room Air 02/28/18 13:00 53 19 123/73 (90) 98 Room Air 02/28/18 12:25 96 Room Air 02/28/18 12:15 52 13 108/58 (75) 96 Room Air 02/28/18 12:00 61 18 113/59 (77) 98 Room Air 02/28/18 11:30 59 21 133/72 (92) 96 Room Air 02/28/18 11:15 53 19 128/63 (84) Room Air 02/28/18 09:45 65 19 101/55 (70) 95 Room Air 02/28/18 09:30 37.1 60 20 101/75 (84) 96 Room Air 02/28/18 09:30 37.1 60 20 101/75 (84) 97 Room Air 02/28/18 09:00 58 16 102/60 (74) 98 Room Air 02/28/18 08:00 37.1 51 19 127/74 (91) 100 Room Air 122/68 (86) 02/28/18 08:00 Room Air 02/28/18 07:00 47 15 132/72 (92) 99 Nasal Cannula 2.0 02/28/18 07:00 47 15 132/72 (92) 99 Nasal Cannula 2.0 02/28/18 06:00 44 14 116/65 (82) 98 Nasal Cannula 2.0 02/28/18 05:00 43 13 118/63 (81) 98 Nasal Cannula 2.0 02/28/18 04:01 36.7 48 16 121/69 (86) 99 Nasal Cannula 2.0 02/28/18 04:00 96 Nasal Cannula 2.0 02/28/18 03:00 42 15 113/64 (80) 99 Nasal Cannula 2.0 02/28/18 02:00 47 13 126/68 (87) 100 Nasal Cannula 2.0 02/28/18 01:00 44 12 117/65 (82) 99 Nasal Cannula 2.0 02/28/18 00:45 44 15 116/62 (80) 98 Nasal Cannula 2.0 02/28/18 00:00 36.5 47 12 108/60 (76) 98 Nasal Cannula 2.0 02/28/18 00:00 98 Nasal Cannula 2.0 02/27/18 23:00 51 16 108/61 (77) 97 Nasal Cannula 2.0 02/27/18 22:45 51 15 111/58 (75) 100 Nasal Cannula 2.0 02/27/18 22:11 54 16 109/67 (81) 98 Nasal Cannula 2.0 02/27/18 22:00 59 17 90/52 (65) 98 Nasal Cannula 2.0 02/27/18 21:00 36.5 55 13 111/64 (80) 96 Nasal Cannula 2.0 02/27/18 20:00 36.5 58 18 118/64 (82) 100 Nasal Cannula 2.0 02/27/18 20:00 99 Nasal Cannula 2.0 02/27/18 19:00 58 13 132/70 (90) 100 Nasal Cannula 2.0 02/27/18 18:30 53 27 120/64 (82) 99 Nasal Cannula 2.0 02/27/18 18:00 37.0 66 18 99/55 (70) 95 Nasal Cannula 2.0 02/27/18 17:58 98 Nasal Cannula 2.0 02/27/18 17:45 76 15 90/62 (71) 97 Nasal Cannula 2.0 02/27/18 17:35 37.2 74 15 93/52 96 02/27/18 17:30 79 16 95/53 94 02/27/18 17:20 81 19 107/59 98 02/27/18 17:15 78 16 130/77 97 02/27/18 17:15 78 16 130/77 (94) 97 Nasal Cannula 2.0 02/27/18 17:10 37.2 41 14 186/97 98 Physical Exam General Appearance: WD/WN, no apparent distress Eyes: sclerae normal ENT: hearing grossly normal Neck: supple, no JVD, trachea midline, + pertinent finding (CEA incision open to air, well-approximated without bleeding, mild bruising, no significant swelling to suggest hematoma) Respiratory/Chest: lungs clear, normal breath sounds, no respiratory distress, no accessory muscle use Cardiovascular: regular rate, rhythm, no gallop, no murmur Abdomen: normal bowel sounds, non tender, soft Extremities: no pedal edema, no calf tenderness Neurologic/Psychiatric: alert, normal mood/affect, oriented x 3, + facial droop , + motor weakness (RUE to hand superintendent power and flexion/extension but improved from ) Laboratory Results Last 24 Hours Test 02/27/18 18:00 02/28/18 00:18 02/28/18 00:20 02/28/18 03:52 Bedside Glucose 76 mg/dl 27 mg/dl 164 mg/dl White Blood Count 25.91 K/uL Red Blood Count 3.92 M/uL Hemoglobin 12.9 g/dL Hematocrit 37.7 % Mean Corpuscular Volume 96.2 fL Mean Corpuscular Hemoglobin 32.9 pg Mean Corpuscular Hemoglobin Concent 34.2 g/dl Platelet Count 406 K/uL Mean Platelet Volume 9.8 fL Neutrophils (%) (Auto) 83.5 % Lymphocytes (%) (Auto) 8.3 % Monocytes (%) (Auto) 7.7 % Eosinophils (%) (Auto) 0.0 % Basophils (%) (Auto) 0.0 % Neutrophils # (Auto) 21.60 K/uL Lymphocytes # (Auto) 2.15 K/uL Monocytes # (Auto) 2.00 K/uL Eosinophils # (Auto) 0.01 K/uL Basophils # (Auto) 0.01 K/uL RDW Standard Deviation 43.2 fL RDW Coefficient of Variation 12.5 % Immature Granulocyte % (Auto) 0.5 % Immature Granulocyte # (Auto) 0.14 K/uL Sodium Level 136 mmol/L Potassium Level 4.3 mmol/L Chloride Level 104 mmol/L Carbon Dioxide Level 24 mmol/L Anion Gap 8.0 mmol/L Blood Urea Nitrogen 18 mg/dl Creatinine 0.80 mg/dl Est Creatinine Clear Calc Drug Dose 103.6 ml/min Estimated GFR () 107.9 Estimated GFR (Non- 93.1 BUN/Creatinine Ratio 22.5 Random Glucose 159 mg/dl Calcium Level 8.2 mg/dl Triglycerides Level 107 mg/dl Cholesterol Level 163 mg/dl HDL Cholesterol 72 mg/dl LDL Cholesterol, Calculated 70 mg/dl VLDL Cholesterol, Calculated 21 mg/dl Cholesterol/HDL Ratio 2.3 Test 02/28/18 06:32 02/28/18 13:29 Bedside Glucose 139 mg/dl 118 mg/dl Assessment and Plan Mr. Wilkinson is a 68 y/o male with PMHx of HTN who presents to the ED for L facial droop and RUE/RLE dysfunction starting this AM. 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 tPA was stopped and repeat head CT performed without bleed. CTA revealed significant R ICA stenosis with recommendations for revascularization. tPA was restarted and deficits improved and underwent emergent CEA - Neuro checks and NIH stroke scale; Day 2 S/P TPA orders in - PT/OT/Speech Evaluations - Plavix 75 mg daily; Pravastatin 10 mg daily - Vascular following - appreciate surgical management - Neurology following - appreciate recommendations - Intensivists following - discussed with team - appreciate co-management HTN: - Currently having low pressures with pressor support to maintain appropriate MAP for improved perfusion - Continue to hold Lisinopril Leukocytosis: - Likely steroid induced and reactive - no signs of infection and will monitor DVT Prophylaxis: SCDs Code Status: FULL RESUSCITATION Disposition: From home - possible home with services vs rehab Continued [facility] stay due to: multiple IV medications needed Discharge planning: home with home health
--- NOTE | 2018-02-28 15:24 | DIAGNOSTIC IMAGING REPORT ---
RIGHT SHOULDER 3 VIEWS CLINICAL HISTORY: Right shoulder pain. FINDINGS: 3 views of the right shoulder are obtained. Correlation is made with chest x-ray dated 02/27/2018. The skeletal structures appear osteopenic. No acute fracture or dislocation is seen. There is productive degenerative change at the chronic clavicular joint. The glenohumeral articulation is preserved. A chronic Hill-Sachs defect is noted. The overlying soft tissues are within normal limits. Imaged right upper lobe lung parenchyma appears clear. IMPRESSION: 1. No acute bony abnormality is seen involving the right shoulder. 2. A chronic Hill-Sachs lesion is noted. 3. Degenerative change as above. Electronically signed by: Wei Foster M.D. 02/28/2018 3:23 PM Dictated Date/Time: 02/28/2018 3:21 PM
[2018-02-28] MEDS ORDERED: CLOPIDOGREL BISULFATE 75 MG TAB PO ONE (15:30)
[2018-02-28] MEDS: PRAVASTATIN SOD 10 MG TAB PO SCH (15:38)
--- NOTE | 2018-02-28 18:21 | Critical Care Progress Note ---
Critical Care Progress Note Date of Service Feb 28, 2018. Critical Care Progress Note Called to the bedside to address leaking arterial line with dampened wave form. Removed tegaderm dressing and discovered hematoma adjacent to the arterial line. Removed arterial line and cleaned area while applying direct pressure. Sterile gauze was used after 5 minutes of direct pressure and coban was used to secure dressing. Patient tolerated procedure well with no complaints of pain. Radial pulse was palpable. Systolic blood pressure via NIBP monitor was 137. Findings reported to Dr. Grant.
[2018-02-28] MEDS: KETOROLAC TROMETHAMINE 15 MG/ML VIAL IV. PRN (19:45)
[2018-03-01] VITALS (18 sets, daily range): BP systolic 104–169; BP diastolic 70–99; PULSE 60–86; TEMP 36.7–37.1; O2SAT 94–99
[2018-03-01] MEDS: OXYCODONE/ACETAMINOPHEN 5-325 TAB PO PRN ×3 (00:10→21:30)
[2018-03-01] MEDS: PHENYLEPHRINE HCL INJ 20 MG in DEXTROSE 5% 500ML 500 ML IV PRN ×2 (00:12→05:58)
[2018-03-01] MEDS: SODIUM CHLORIDE 0.9% 1000ML 1,000 ML IV SCH ×3 (05:09→19:06)
[2018-03-01 05:27] LABS: BASO % 0.1 %; BASO ABS # 0.02 K/uL (0-0.2); EOS % 0.7 %; EOS ABS # 0.09 K/uL (0-0.5); HEMATOCRIT 37.5 % (42-52); HEMOGLOBIN 12.3 g/dL (14.0-18.0); IG# 0.06 K/uL (0.00-0.02); LYMPH % 22.4 %; MEAN CELL VOLUME 99.2 fL (80-100); MEAN CORPUSCULAR HEMOGLOBIN 32.5 pg (25-34); MEAN CORPUSCULAR HGB CONC 32.8 g/dl (32-36); MEAN PLATELET VOLUME 9.7 fL (7.4-10.4); MONO % 8.7 %; NEUT % 67.7 %; NEUT ABS # 9.37 K/uL (1.4-6.5); PLATELET COUNT 291 K/uL (130-400); RED CELL DISTRIBUTION WIDTH CV 12.9 % (11.5-14.5); RED CELL DISTRIBUTION WIDTH SD 47.1 fL (36.4-46.3); WHITE BLOOD COUNT 13.84 K/uL (4.8-10.8)
[2018-03-01 05:44] LABS: CALCIUM 7.7 mg/dl (8.5-10.1); CREATININE 0.58 mg/dl (0.60-1.40)
[2018-03-01] MEDS: CLOPIDOGREL BISULFATE 75 MG TAB PO SCH (07:49)
--- NOTE | 2018-03-01 09:04 | Progress Note ---
Progress Note Date of Service: Mar 01, 2018. Subjective Able to speak today, no complaints Objective Vital Signs Vital Signs Past 12 Hours Date Time Temp Pulse Resp B/P (MAP) Pulse Ox O2 Delivery O2 Flow Rate FiO2 03/01/18 06:00 60 16 169/95 (119) 98 Room Air 03/01/18 04:00 37.0 69 17 126/84 (98) 96 Room Air 03/01/18 02:00 64 16 104/75 (85) 94 Room Air 03/01/18 00:01 36.9 69 18 110/81 (91) 96 Room Air 02/28/18 23:59 Room Air Exam VSS Afebrile Incision dry and clean. Neuro markedly improved. Laboratory and Microbiology Results Past 24 Hours Test 02/28/18 13:29 02/28/18 18:44 03/01/18 00:01 03/01/18 04:58 Range/Units Bedside Glucose 118 92 112 70-99 mg/dl White Blood Count 13.84 4.8-10.8 K/uL Red Blood Count 3.78 4.7-6.1 M/uL Hemoglobin 12.3 14.0-18.0 g/dL Hematocrit 37.5 42-52 % Mean Corpuscular Volume 99.2 80-100 fL Mean Corpuscular Hemoglobin 32.5 25-34 pg Mean Corpuscular Hemoglobin Concent 32.8 32-36 g/dl Platelet Count 291 130-400 K/uL Mean Platelet Volume 9.7 7.4-10.4 fL Neutrophils (%) (Auto) 67.7 % Lymphocytes (%) (Auto) 22.4 % Monocytes (%) (Auto) 8.7 % Eosinophils (%) (Auto) 0.7 % Basophils (%) (Auto) 0.1 % Neutrophils # (Auto) 9.37 1.4-6.5 K/uL Lymphocytes # (Auto) 3.10 1.2-3.4 K/uL Monocytes # (Auto) 1.20 0.11-0.59 K/uL Eosinophils # (Auto) 0.09 0-0.5 K/uL Basophils # (Auto) 0.02 0-0.2 K/uL RDW Standard Deviation 47.1 36.4-46.3 fL RDW Coefficient of Variation 12.9 11.5-14.5 % Immature Granulocyte % (Auto) 0.4 % Immature Granulocyte # (Auto) 0.06 0.00-0.02 K/uL Sodium Level 139 136-145 mmol/L Potassium Level 4.0 3.5-5.1 mmol/L Chloride Level 109 98-107 mmol/L Carbon Dioxide Level 23 21-32 mmol/L Anion Gap 7.0 3-11 mmol/L Blood Urea Nitrogen 14 7-18 mg/dl Creatinine 0.58 0.60-1.40 mg/dl Est Creatinine Clear Calc Drug Dose 137.0 ml/min Estimated GFR () 123.1 Estimated GFR (Non- 106.2 BUN/Creatinine Ratio 24.8 10-20 Random Glucose 98 70-99 mg/dl Calcium Level 7.7 8.5-10.1 mg/dl Imp: Post op emergent right CEA Plan: Patient improving nicely. Will see in two weeks post op. Please call if needed. Thank you very much for letting me participate in the care of this patient.
--- NOTE | 2018-03-01 09:09 | Progress Note ---
Progress Note Date of Service: Mar 01, 2018. Subjective 68 yo m POD #2 after emergent R CEA d/t severe stenosis and evolving CVA, seen in f/u today. Pt denies pain and states is feeling much better. Motor function and speech improved. Pt denies TOMLINSON or other new complaints. Objective Vital Signs Vital Signs Past 12 Hours Date Time Temp Pulse Resp B/P (MAP) Pulse Ox O2 Delivery O2 Flow Rate FiO2 03/01/18 06:00 60 16 169/95 (119) 98 Room Air 03/01/18 04:00 37.0 69 17 126/84 (98) 96 Room Air 03/01/18 02:00 64 16 104/75 (85) 94 Room Air 03/01/18 00:01 36.9 69 18 110/81 (91) 96 Room Air 02/28/18 23:59 Room Air Exam CONST: A&O x3, NAD, chronically ill appearing male NECK: R neck incision C/D/I, mild local edema and tenderness. No ecchymosis or erythema. NEURO: L side strength 4/5, expressive aphasia and L facial droop improved. No new focal deficits. Laboratory and Microbiology Results Past 24 Hours Test 02/28/18 13:29 02/28/18 18:44 03/01/18 00:01 03/01/18 04:58 Range/Units Bedside Glucose 118 92 112 70-99 mg/dl White Blood Count 13.84 4.8-10.8 K/uL Red Blood Count 3.78 4.7-6.1 M/uL Hemoglobin 12.3 14.0-18.0 g/dL Hematocrit 37.5 42-52 % Mean Corpuscular Volume 99.2 80-100 fL Mean Corpuscular Hemoglobin 32.5 25-34 pg Mean Corpuscular Hemoglobin Concent 32.8 32-36 g/dl Platelet Count 291 130-400 K/uL Mean Platelet Volume 9.7 7.4-10.4 fL Neutrophils (%) (Auto) 67.7 % Lymphocytes (%) (Auto) 22.4 % Monocytes (%) (Auto) 8.7 % Eosinophils (%) (Auto) 0.7 % Basophils (%) (Auto) 0.1 % Neutrophils # (Auto) 9.37 1.4-6.5 K/uL Lymphocytes # (Auto) 3.10 1.2-3.4 K/uL Monocytes # (Auto) 1.20 0.11-0.59 K/uL Eosinophils # (Auto) 0.09 0-0.5 K/uL Basophils # (Auto) 0.02 0-0.2 K/uL RDW Standard Deviation 47.1 36.4-46.3 fL RDW Coefficient of Variation 12.9 11.5-14.5 % Immature Granulocyte % (Auto) 0.4 % Immature Granulocyte # (Auto) 0.06 0.00-0.02 K/uL Sodium Level 139 136-145 mmol/L Potassium Level 4.0 3.5-5.1 mmol/L Chloride Level 109 98-107 mmol/L Carbon Dioxide Level 23 21-32 mmol/L Anion Gap 7.0 3-11 mmol/L Blood Urea Nitrogen 14 7-18 mg/dl Creatinine 0.58 0.60-1.40 mg/dl Est Creatinine Clear Calc Drug Dose 137.0 ml/min Estimated GFR () 123.1 Estimated GFR (Non- 106.2 BUN/Creatinine Ratio 24.8 10-20 Random Glucose 98 70-99 mg/dl Calcium Level 7.7 8.5-10.1 mg/dl ASSESSMENT and PLAN: s/p R CEA Severe R ICAS with evolving CVA Pt doing well post op. Sx significantly improved. Will see in office in 2 weeks. Please call if needed.
--- NOTE | 2018-03-01 10:00 | Neurology Progress Notes ---
Neurology Progress Note Date of Service Mar 01, 2018. Subjective No new neurological events. Patient has been stable since yesterday. Is being weaned off of vasopressors. Continues to have right arm pain of unknown etiology. Denies any neck pain. Reports it feels like pins and needles down his right arm from his shoulder to his hand. MRI of the brain report and images were reviewed. No hemorrhage. Acute infarcts in the right frontotemporal and right frontal area Objective Date Time Temp Pulse Resp B/P (MAP) Pulse Ox O2 Delivery O2 Flow Rate FiO2 03/01/18 06:00 60 16 169/95 (119) 98 Room Air 03/01/18 04:00 37.0 69 17 126/84 (98) 96 Room Air 03/01/18 02:00 64 16 104/75 (85) 94 Room Air 03/01/18 00:01 36.9 69 18 110/81 (91) 96 Room Air 02/28/18 23:59 Room Air 02/28/18 20:00 37.0 65 20 124/82 (96) 96 Room Air 02/28/18 18:00 60 24 137/86 (103) 99 Room Air 02/28/18 17:30 58 17 118/80 (93) 95 Room Air 02/28/18 17:00 52 19 124/76 (92) 98 Room Air 02/28/18 16:00 37.1 54 20 124/77 (93) 98 Room Air 02/28/18 15:00 63 17 97/67 (77) 96 Room Air 02/28/18 14:00 68 23 110/66 (81) 98 Room Air 02/28/18 14:00 68 23 110/66 (81) 98 Room Air 02/28/18 13:00 53 19 123/73 (90) 98 Room Air 02/28/18 12:25 96 Room Air 02/28/18 12:15 52 13 108/58 (75) 96 Room Air 02/28/18 12:00 61 18 113/59 (77) 98 Room Air 02/28/18 11:30 59 21 133/72 (92) 96 Room Air 02/28/18 11:15 53 19 128/63 (84) Room Air Last 24 Hours Test 02/28/18 13:29 02/28/18 18:44 03/01/18 00:01 03/01/18 04:58 Bedside Glucose 118 mg/dl 92 mg/dl 112 mg/dl White Blood Count 13.84 K/uL Red Blood Count 3.78 M/uL Hemoglobin 12.3 g/dL Hematocrit 37.5 % Mean Corpuscular Volume 99.2 fL Mean Corpuscular Hemoglobin 32.5 pg Mean Corpuscular Hemoglobin Concent 32.8 g/dl Platelet Count 291 K/uL Mean Platelet Volume 9.7 fL Neutrophils (%) (Auto) 67.7 % Lymphocytes (%) (Auto) 22.4 % Monocytes (%) (Auto) 8.7 % Eosinophils (%) (Auto) 0.7 % Basophils (%) (Auto) 0.1 % Neutrophils # (Auto) 9.37 K/uL Lymphocytes # (Auto) 3.10 K/uL Monocytes # (Auto) 1.20 K/uL Eosinophils # (Auto) 0.09 K/uL Basophils # (Auto) 0.02 K/uL RDW Standard Deviation 47.1 fL RDW Coefficient of Variation 12.9 % Immature Granulocyte % (Auto) 0.4 % Immature Granulocyte # (Auto) 0.06 K/uL Sodium Level 139 mmol/L Potassium Level 4.0 mmol/L Chloride Level 109 mmol/L Carbon Dioxide Level 23 mmol/L Anion Gap 7.0 mmol/L Blood Urea Nitrogen 14 mg/dl Creatinine 0.58 mg/dl Est Creatinine Clear Calc Drug Dose 137.0 ml/min Estimated GFR () 123.1 Estimated GFR (Non- 106.2 BUN/Creatinine Ratio 24.8 Random Glucose 98 mg/dl Calcium Level 7.7 mg/dl Exam: Gen.: Patient is alert and oriented in no acute distress lying in bed Neurological examination: Mental status: Patient is alert and oriented to person place and time. Able to give his own history. Attention concentration normal for the situation. Remote and recent memory seem intact Speech: Speech appeared fluent this morning with no signs of dysarthria or aphasia. Facial sensation intact. Tongue midline. Hearing grossly intact voice. Strength: 5/5 both proximal and distal on the right upper and lower extremity with some limitation of right upper extremity due to right arm and shoulder pain. Left upper extremity 3/5, left lower extremity 5-/5. tone is normal. Station within the bed is normal. Current Inpatient Medications Medications (Trade) Dose Ordered Sig/Alejandra Route Start Time Stop Time Status Last Admin Dose Admin Ioversol (Optiray 320) 125 ml UD PRN IV 02/27/18 10:45 03/03/18 10:44 Miscellaneous Information (Pharmacist Discharge Med Rec Consult) 1 ea UD PRN N/A 02/27/18 10:45 03/29/18 10:44 Miscellaneous Information (Icu Protocol For Hyperglycemia) 1 ea PRN PRN N/A 02/27/18 10:45 03/01/18 10:44 Oxycodone/ Acetaminophen (Percocet 5-325mg Tab) FOR MODERATE PAIN ... Q4H PRN PO 02/27/18 16:45 03/13/18 16:44 03/01/18 00:10 2 TAB Phenylephrine HCl 20 mg/Dextrose 502 ml @ 0 mls/hr Q0M PRN IV 02/27/18 17:30 03/29/18 17:29 03/01/18 05:58 101 MLS/HR Fentanyl Citrate (Fentanyl Inj) 25 mcg Q2H PRN IV 02/27/18 18:15 03/13/18 18:14 02/28/18 08:00 25 MCG Sodium Chloride 1,000 ml @ 150 mls/hr Q6H40M IV 02/28/18 04:30 03/30/18 04:29 03/01/18 05:09 150 MLS/HR Pantoprazole Sodium 40 mg/ Syringe 10 ml @ 5 mls/min DAILY@11 IV 02/28/18 11:00 03/30/18 10:59 02/28/18 09:50 5 MLS/MIN Clopidogrel Bisulfate (plAVix TAB) 75 mg DAILY PO 03/01/18 09:00 03/31/18 08:59 03/01/18 07:49 75 MG Pravastatin Sodium (Pravachol Tab) 10 mg DAILY@17 PO 02/28/18 17:00 03/30/18 16:59 02/28/18 15:38 10 MG Ketorolac Tromethamine (Toradol Inj) 15 mg Q6H PRN IV. 02/28/18 19:00 03/05/18 18:59 02/28/18 19:45 15 MG Impression This is a 68-year-old male with an acute right frontal and right frontotemporal ischemic stroke secondary to a critical right ICA stenosis. Residual neurological deficits include mild to moderate left hemiplegia, moderate to severe left facial weakness. Known stroke risk factors include hypertension and critical right ICA stenosis status post emergent endarterectomy postop day 1. 2) right arm pain seems to be separate problem. Does not have typical cervical radiculopathy symptoms and seems more localized to the arm and shoulder. Could consider MRI of the shoulder and cervical spine at a later date for further investigation. Plan Continue pravastatin and Plavix for stroke prevention Recommend MAPS 80-90 for brain perfusion (MAPs 90-110 would also be acceptable from a neurology stroke standpoint, but unlikely to be compatible with recent endarterectomy). Hypotension could place the patient at risk for expanded ischemic changes and worsening stroke symptoms including hemiplegia. Keep patient well-hydrated to avoid hypotension and stroke extension. Follow-up PT/OT and speech therapies for discharge planning. Anticipate patient will need inpatient rehab. Stroke risk factor modifications and recommendations: Blood pressure recommendations for the first month post hospital discharge 140/ 90-110/80, and after that blood pressure recommendations 130/80-100/70 Total cholesterol goal 100- 200 and LDL goal less than 100 (at goal) Hemoglobin A1c goal less than 7 (at goal) Encourage cardiovascular exercise at least 3 times a week for 30 minutes. Follow-up in neurology clinic in 1 month for post stroke hospital follow-up. If there is any questions or concerns, feel free to call/page me.
[2018-03-01] MEDS: PANTOprazole INJ 40 MG in SYRINGE 0 ML IV SCH (12:09)
--- NOTE | 2018-03-01 12:28 | Critical Care Progress Note ---
Critical Care Progress Note Date of Service Mar 01, 2018. Attending Dr. Grant Subjective Patient is awake and alert. He is postop day #2 emergent right carotid endarterectomy. His speech seems a bit less dysarthric than yesterday. He passed his swallowing evaluation and is eating. He is now off of Antonio- Synephrine. Plavix was started yesterday. Objective Awake alert no acute distress Head normocephalic atraumatic, pupils round reactive sclera anicteric Lungs clear bilaterally Cardiac regular rhythm no murmurs rubs or gallops Abdomen soft nontender no masses no organomegaly Neuro: Still has some mild left-sided weakness but is able to lift arms and legs well off the bed . He still has left facial droop. Speech sounds less dysarthric than yesterday. Assessment & Plan Impression: 1. Acute right MCA CVA due to critical right internal carotid artery stenosis with embolization, postop day #2 right carotid endarterectomy. Blood pressure acceptable off pressors Plan: 1. Continue Plavix 75 mg daily 2. Continue PT and OT and obtain swallowing eval 3. Recommend inpatient rehab with [facility]. Patient is agreeable and family is very supportive. Patient is stable for transfer from ICU from critical care perspective. Data Medications: Current Inpatient Medications Medications (Trade) Dose Ordered Sig/Alejandra Route Start Time Stop Time Status Last Admin Dose Admin Ioversol (Optiray 320) 125 ml UD PRN IV 02/27/18 10:45 03/03/18 10:44 Miscellaneous Information (Pharmacist Discharge Med Rec Consult) 1 ea UD PRN N/A 02/27/18 10:45 03/29/18 10:44 Oxycodone/ Acetaminophen (Percocet 5-325mg Tab) FOR MODERATE PAIN ... Q4H PRN PO 02/27/18 16:45 03/13/18 16:44 03/01/18 00:10 2 TAB Phenylephrine HCl 20 mg/Dextrose 502 ml @ 0 mls/hr Q0M PRN IV 02/27/18 17:30 03/29/18 17:29 03/01/18 05:58 101 MLS/HR Sodium Chloride 1,000 ml @ 150 mls/hr Q6H40M IV 02/28/18 04:30 03/30/18 04:29 03/01/18 12:08 150 MLS/HR Pantoprazole Sodium 40 mg/ Syringe 10 ml @ 5 mls/min DAILY@11 IV 02/28/18 11:00 03/30/18 10:59 03/01/18 12:09 5 MLS/MIN Clopidogrel Bisulfate (plAVix TAB) 75 mg DAILY PO 03/01/18 09:00 03/31/18 08:59 03/01/18 07:49 75 MG Pravastatin Sodium (Pravachol Tab) 10 mg DAILY@17 PO 02/28/18 17:00 03/30/18 16:59 02/28/18 15:38 10 MG Ketorolac Tromethamine (Toradol Inj) 15 mg Q6H PRN IV. 02/28/18 19:00 03/05/18 18:59 02/28/18 19:45 15 MG Vital Signs: Date Time Temp Pulse Resp B/P (MAP) Pulse Ox O2 Delivery O2 Flow Rate FiO2 03/01/18 11:44 Room Air 03/01/18 11:00 73 21 124/87 (99) 99 Room Air 03/01/18 10:20 75 98 03/01/18 10:00 80 27 125/71 (89) 99 Room Air 03/01/18 09:00 82 18 121/70 (87) 98 Room Air 03/01/18 08:00 37.1 82 26 139/74 (95) 98 Room Air 03/01/18 07:12 62 22 144/99 (114) 98 Room Air 03/01/18 06:00 60 16 169/95 (119) 98 Room Air 03/01/18 04:00 37.0 69 17 126/84 (98) 96 Room Air 03/01/18 02:00 64 16 104/75 (85) 94 Room Air 03/01/18 00:01 36.9 69 18 110/81 (91) 96 Room Air 02/28/18 23:59 Room Air 02/28/18 20:00 37.0 65 20 124/82 (96) 96 Room Air 02/28/18 18:00 60 24 137/86 (103) 99 Room Air 02/28/18 17:30 58 17 118/80 (93) 95 Room Air 02/28/18 17:00 52 19 124/76 (92) 98 Room Air 02/28/18 16:00 37.1 54 20 124/77 (93) 98 Room Air 02/28/18 15:00 63 17 97/67 (77) 96 Room Air 02/28/18 14:00 68 23 110/66 (81) 98 Room Air 02/28/18 14:00 68 23 110/66 (81) 98 Room Air 02/28/18 13:00 53 19 123/73 (90) 98 Room Air 02/28/18 12:25 96 Room Air Laboratory Results: Last 24 Hours Test 02/28/18 13:29 02/28/18 18:44 03/01/18 00:01 03/01/18 04:58 Bedside Glucose 118 mg/dl 92 mg/dl 112 mg/dl White Blood Count 13.84 K/uL Red Blood Count 3.78 M/uL Hemoglobin 12.3 g/dL Hematocrit 37.5 % Mean Corpuscular Volume 99.2 fL Mean Corpuscular Hemoglobin 32.5 pg Mean Corpuscular Hemoglobin Concent 32.8 g/dl Platelet Count 291 K/uL Mean Platelet Volume 9.7 fL Neutrophils (%) (Auto) 67.7 % Lymphocytes (%) (Auto) 22.4 % Monocytes (%) (Auto) 8.7 % Eosinophils (%) (Auto) 0.7 % Basophils (%) (Auto) 0.1 % Neutrophils # (Auto) 9.37 K/uL Lymphocytes # (Auto) 3.10 K/uL Monocytes # (Auto) 1.20 K/uL Eosinophils # (Auto) 0.09 K/uL Basophils # (Auto) 0.02 K/uL RDW Standard Deviation 47.1 fL RDW Coefficient of Variation 12.9 % Immature Granulocyte % (Auto) 0.4 % Immature Granulocyte # (Auto) 0.06 K/uL Sodium Level 139 mmol/L Potassium Level 4.0 mmol/L Chloride Level 109 mmol/L Carbon Dioxide Level 23 mmol/L Anion Gap 7.0 mmol/L Blood Urea Nitrogen 14 mg/dl Creatinine 0.58 mg/dl Est Creatinine Clear Calc Drug Dose 137.0 ml/min Estimated GFR () 123.1 Estimated GFR (Non- 106.2 BUN/Creatinine Ratio 24.8 Random Glucose 98 mg/dl Calcium Level 7.7 mg/dl Test 03/01/18 11:15 Bedside Glucose 83 mg/dl
[2018-03-01] MEDS: PRAVASTATIN SOD 10 MG TAB PO SCH (17:55)
--- NOTE | 2018-03-01 19:37 | Hospitalist Progress Note ---
Hospitalist Progress Note Date of Service Mar 01, 2018. Subjective Pt evaluation today including: conversation w/ patient, conversation w/ family , physical exam, chart review, conversation w/ benefits sales consultant ([employer]) Patient seen and evaluated. No acute events overnight. Tapered off pressor support with good BP and MAP. L sided deficits improving but still remain. Eating and drinking well without issue. Speech improving and talking more instead of just head shakes for yes/no questions Agrees to rehab and can actually go tomorrow to [facility]. Reports R shoulder pain is actually improving since the initial onset however not really clear the etiology and possible more soft tissue Constitutional: No fever, No chills Respiratory: No cough, No shortness of breath Cardiovascular: No chest pain Abdomen: No pain, No nausea, No vomiting, No diarrhea, No constipation Musculoskeletal: No swelling, No calf pain Male : No dysuria Heme: No abnormal bleeding/bruising Medications Current Inpatient Medications Medications (Trade) Dose Ordered Sig/Alejandra Route Start Time Stop Time Status Last Admin Dose Admin Ioversol (Optiray 320) 125 ml UD PRN IV 02/27/18 10:45 03/03/18 10:44 Miscellaneous Information (Pharmacist Discharge Med Rec Consult) 1 ea UD PRN N/A 02/27/18 10:45 03/29/18 10:44 Oxycodone/ Acetaminophen (Percocet 5-325mg Tab) FOR MODERATE PAIN ... Q4H PRN PO 02/27/18 16:45 03/13/18 16:44 03/01/18 14:50 2 TAB Phenylephrine HCl 20 mg/Dextrose 502 ml @ 0 mls/hr Q0M PRN IV 02/27/18 17:30 03/29/18 17:29 03/01/18 05:58 101 MLS/HR Sodium Chloride 1,000 ml @ 150 mls/hr Q6H40M IV 02/28/18 04:30 03/30/18 04:29 03/01/18 12:08 150 MLS/HR Pantoprazole Sodium 40 mg/ Syringe 10 ml @ 5 mls/min DAILY@11 IV 02/28/18 11:00 03/30/18 10:59 03/01/18 12:09 5 MLS/MIN Clopidogrel Bisulfate (plAVix TAB) 75 mg DAILY PO 8/24/18 09:00 03/31/18 08:59 03/01/18 07:49 75 MG Pravastatin Sodium (Pravachol Tab) 10 mg DAILY@17 PO 02/28/18 17:00 03/30/18 16:59 03/01/18 17:55 10 MG Ketorolac Tromethamine (Toradol Inj) 15 mg Q6H PRN IV. 02/28/18 19:00 03/05/18 18:59 02/28/18 19:45 15 MG Objective Vital Signs Date Time Temp Pulse Resp B/P (MAP) Pulse Ox O2 Delivery O2 Flow Rate FiO2 03/01/18 13:00 82 24 138/72 (94) 96 Room Air 03/01/18 12:00 37.0 81 28 120/70 (87) 97 Room Air 03/01/18 11:44 Room Air 03/01/18 11:00 73 21 124/87 (99) 99 Room Air 03/01/18 10:20 75 98 03/01/18 10:00 80 27 125/71 (89) 99 Room Air 03/01/18 09:00 82 18 121/70 (87) 98 Room Air 03/01/18 08:00 Room Air 03/01/18 08:00 37.1 82 26 139/74 (95) 98 Room Air 03/01/18 07:12 62 22 144/99 (114) 98 Room Air 03/01/18 06:00 60 16 169/95 (119) 98 Room Air 03/01/18 04:00 37.0 69 17 126/84 (98) 96 Room Air 03/01/18 02:00 64 16 104/75 (85) 94 Room Air 03/01/18 00:01 36.9 69 18 110/81 (91) 96 Room Air 02/28/18 23:59 Room Air 02/28/18 20:00 37.0 65 20 124/82 (96) 96 Room Air Physical Exam General Appearance: WD/WN, no apparent distress Eyes: sclerae normal ENT: hearing grossly normal Neck: supple, no JVD, trachea midline Respiratory/Chest: lungs clear, normal breath sounds, no respiratory distress, no accessory muscle use Cardiovascular: regular rate, rhythm, no gallop, no murmur Abdomen: normal bowel sounds, non tender, soft Extremities: no pedal edema, no calf tenderness Neurologic/Psychiatric: alert, oriented x 3, + facial droop (L sided - slightly improved) Laboratory Results Last 24 Hours Test 02/28/18 18:44 03/01/18 00:01 03/01/18 04:58 03/01/18 11:15 Bedside Glucose 92 mg/dl 112 mg/dl 83 mg/dl White Blood Count 13.84 K/uL Red Blood Count 3.78 M/uL Hemoglobin 12.3 g/dL Hematocrit 37.5 % Mean Corpuscular Volume 99.2 fL Mean Corpuscular Hemoglobin 32.5 pg Mean Corpuscular Hemoglobin Concent 32.8 g/dl Platelet Count 291 K/uL Mean Platelet Volume 9.7 fL Neutrophils (%) (Auto) 67.7 % Lymphocytes (%) (Auto) 22.4 % Monocytes (%) (Auto) 8.7 % Eosinophils (%) (Auto) 0.7 % Basophils (%) (Auto) 0.1 % Neutrophils # (Auto) 9.37 K/uL Lymphocytes # (Auto) 3.10 K/uL Monocytes # (Auto) 1.20 K/uL Eosinophils # (Auto) 0.09 K/uL Basophils # (Auto) 0.02 K/uL RDW Standard Deviation 47.1 fL RDW Coefficient of Variation 12.9 % Immature Granulocyte % (Auto) 0.4 % Immature Granulocyte # (Auto) 0.06 K/uL Sodium Level 139 mmol/L Potassium Level 4.0 mmol/L Chloride Level 109 mmol/L Carbon Dioxide Level 23 mmol/L Anion Gap 7.0 mmol/L Blood Urea Nitrogen 14 mg/dl Creatinine 0.58 mg/dl Est Creatinine Clear Calc Drug Dose 137.0 ml/min Estimated GFR () 123.1 Estimated GFR (Non- 106.2 BUN/Creatinine Ratio 24.8 Random Glucose 98 mg/dl Calcium Level 7.7 mg/dl Assessment and Plan Mr. Wilkinson is a 68 y/o male with PMHx of HTN who presents to the ED for L facial droop and RUE/RLE dysfunction starting this AM. 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 tPA was stopped and repeat head CT performed without bleed. CTA revealed significant R ICA stenosis with recommendations for revascularization. tPA was restarted and deficits improved and underwent emergent CEA - Neuro checks and NIH stroke scale; Day 2 S/P TPA orders continue - PT/OT/Speech Evaluations - Plavix 75 mg daily; Pravastatin 10 mg daily - Vascular following - appreciate surgical management - Neurology following - appreciate recommendations - Intensivists following - discussed with team - stable for D/C from ICU HTN: - Pressor support has been weaned - will monitor - Continue to hold Lisinopril Leukocytosis: - Likely steroid induced and reactive - no signs of infection and will monitor R Shoulder/Arm Pain: - Seems to get best management with anti-inflammatories. States he still has pain but is resolving compared to initial start DVT Prophylaxis: SCDs Code Status: FULL RESUSCITATION Disposition: [facility] - was accepted tomorrow - if stable can be D/Cd tomorrow Discharge planning: rehab hospital
[2018-03-02] VITALS: BP 122/65; PULSE 79; O2SAT 97
[2018-03-02 01:00] VITALS: PULSE 77; O2SAT 97
[2018-03-02] MEDS: KETOROLAC TROMETHAMINE 15 MG/ML VIAL IV. PRN (01:12)
[2018-03-02] MEDS: SODIUM CHLORIDE 0.9% 1000ML 1,000 ML IV SCH (01:18)
[2018-03-02] MEDS: OXYCODONE/ACETAMINOPHEN 5-325 TAB PO PRN (01:42)
[2018-03-02 04:37] LABS: BASO % 0.1 %; BASO ABS # 0.01 K/uL (0-0.2); HEMATOCRIT 34.3 % (42-52); HEMOGLOBIN 11.4 g/dL (14.0-18.0); IG# 0.03 K/uL (0.00-0.02); LYMPH ABS # 1.96 K/uL (1.2-3.4); MEAN CELL VOLUME 97.4 fL (80-100); MEAN CORPUSCULAR HEMOGLOBIN 32.4 pg (25-34); MEAN CORPUSCULAR HGB CONC 33.2 g/dl (32-36); MEAN PLATELET VOLUME 9.6 fL (7.4-10.4); MONO % 9.1 %; MONO ABS # 0.89 K/uL (0.11-0.59); NEUT % 68.5 %; NEUT ABS # 6.71 K/uL (1.4-6.5); PLATELET COUNT 201 K/uL (130-400); RED CELL DISTRIBUTION WIDTH CV 12.5 % (11.5-14.5); RED CELL DISTRIBUTION WIDTH SD 44.5 fL (36.4-46.3)
[2018-03-02 04:58] LABS: CALCIUM 7.6 mg/dl (8.5-10.1); CREATININE 0.56 mg/dl (0.60-1.40); POTASSIUM 3.8 mmol/L (3.5-5.1)
[2018-03-02 07:09] VITALS: BP 128/83; PULSE 72; TEMP 36.6; O2SAT 97
[2018-03-02] MEDS ORDERED: PANT40TA PO (07:50)
[2018-03-02] MEDS ORDERED: PLV75 PO (07:50)
[2018-03-02] MEDS ORDERED: PRVC10 PO (07:50)
[2018-03-02 08:00] VITALS: O2SAT 96
--- NOTE | 2018-03-02 08:05 | Discharge Instructions ---
Discharge Instructions Date of Service Mar 02, 2018. Admission Reason for Admission: CVA Discharge Discharge Diagnosis / Problem: CVA Discharge Goals Goal(s): Decrease discomfort, Improve function, Increase independence Activity Recommendations Activity Level: Ambulates in room Therapies: Physical Therapy, Occupational Therapy, Speech Therapy . Additional Information Patient informed of condition: Yes Advance Directives: Yes DNR: No Level of Care: Acute Rehab Communicable Disease: No Prognosis: Improving Instructions / Follow-Up Instructions / Follow-Up Right Frontotemporal and R Frontal Lobe Stroke with Right Carotid Stenosis with Endarterectomy - Left facial droop and left sided weakness are improving and plan for ongoing therapy to continue to work on this - Will use Plavix 75 mg daily as an antiplatelet medication to help prevent strokes. Also started on Pravastatin 10 mg daily for vessel wall stability as overall cholesterol values are in a normal limit - Recommendations from speech therapy - continue regular diet but avoid scattered foods such as rice, corn... and basic aspiration precautions such as upright for meals and remaining upright for 30 minutes. - Vascular Surgery - Dr. Cornell - would like to see you within 2 weeks for post- operative assessment - Neurology - Dr. Garcia - would like to follow-up in 1 month at the neurology clinic High Blood Pressure: - May resume Lisinopril to maintain ongoing good blood pressure control - Blood pressures have been well controlled here at the hospital and recommendations from neurology for the first month is 110/80 - 140/90 then after that recommendations are 100/70-130/80 - Blood pressures have been in the recommended range off Lisinopril. Recommend to monitor blood pressure and adjust as necessary. May start at Lisinopril 10 mg daily and move up if needed R Shoulder/Arm Pain: - Seems to get best management with anti-inflammatories. States he still has pain but is resolving compared to initial start of symptoms - X-ray does show a chronic Hill-Sachs which correlates with history of dislocation from football injury. May benefit from more imaging to better assess soft tissue/ligamentous injury - Can continue intermittent anti-inflammatories and will provide Protonix 40 mg daily for acid reduction given addition of Plavix Disposition: Rehab at [facility] Diet Patient's current hospital diet: AHA Diet (Heart Healthy) Discharge Diet Recommended Diet: AHA Diet (Heart Healthy) Procedures Procedures Performed: Right Carotid Endarterectomy Pending Studies Studies pending at discharge: no Physician Orders On Transfer POLST Discussion: Not Applicable Laboratory Results Hemoglobin A1c Test 02/27/18 08:47 Range/Units Estimated Average Glucose 120 mg/dl Hemoglobin A1c 5.8 H 4.5-5.6 % Lipid Panel Test 02/28/18 03:52 Range/Units Triglycerides Level 107 0-150 mg/dl Cholesterol Level 163 0-200 mg/dl HDL Cholesterol 72 mg/dl Cholesterol/HDL Ratio 2.3 LDL Cholesterol, Calculated 70 mg/dl Medical Emergencies . Who to Call and When: Medical Emergencies: If at any time you feel your situation is an emergency, please call 911 immediately. . Non-Emergent Contact Non-Emergency issues call your: Primary Care Provider Call Non-Emergent contact if: you have a fever, your pain is concerning you, you have any medication questions . . "Provider Documentation" section prepared by Radha Caldwell. . Core Measure Problem Core Measures: Stroke AMI Core Measures Reason no ASA as I/P: Contraindicated Stroke Core Measures Reason no t-PA for Stroke: Treatment provided - N/A Reason no antithrom by day 2: Treatment provided - N/A Reason no antithrom at D/C: Treatment provided - N/A Reason no statin at D/C: Treatment provided - N/A Reason no anticoag w/a fib: Treatment not indicated
[2018-03-02] MEDS ORDERED: KETO10TA PO (09:08)
[2018-03-02] MEDS ORDERED: OXYC-57 PO ×2 (09:08→09:13)
[2018-03-02] MEDS: CLOPIDOGREL BISULFATE 75 MG TAB PO SCH (09:14)
[2018-03-02 11:55] VITALS: BP 135/86; PULSE 79; TEMP 37.6; O2SAT 97
[2018-03-02] MEDS: PANTOprazole INJ 40 MG in SYRINGE 0 ML IV SCH (12:13)
[2018-03-02 12:49] VITALS: BP 135/86; PULSE 79; TEMP 37.6; O2SAT 97
--- NOTE | 2018-03-02 17:58 | Discharge Summary ---
Discharge Summary Date of Service Mar 02, 2018. Discharge Summary Admission Date: Feb 27, 2018 at 11:02 Discharge Date: Mar 02, 2018 Discharge Disposition: Rehab Principal Diagnosis: Large R Frontotemporal/R MCA and R Frontal Lobe CVA Problems/Secondary Diagnoses: 1. HTN 2. R Carotid Stenosis S/P Emergent Endarterectomy 3. S/P R Carpal Tunnel Release Procedures: MRI OF THE BRAIN WITHOUT CONTRAST FINDINGS: Note is made of a 4.1 x 3.1 cm focus of restricted diffusion within the right frontotemporal region consistent with acute infarct. There is minimal sulcal effacement. There is no midline shift or compression of the right lateral ventricle. In addition, there is a 3.6 x 2.6 cm acute infarct within the superior right frontal lobe. Mild ventricular dilatation is due to atrophy. The basilar cisterns are patent. There are no extra-axial collections. Flow-voids for the major intracranial vessels are present. Periventricular T2 hyperintensity suggests moderate small vessel disease. There is a frontal and ethmoid sinus mucosal thickening. Calvarial signal is maintained. Orbits are unremarkable. IMPRESSION: 4.1 x 3.1 cm acute infarct within the right frontotemporal region within the right MCA distribution with minimal mass effect . No evidence of hemorrhage. Additional 3.6 x 2.6 cm superior right frontal lobe acute infarct, possibly within the anterior cerebral artery distribution. HEAD ANGIO WITH CONTRAST FINDINGS: Moderate calcified plaque about the cavernous and clinoid segments bilaterally. Moderate mostly atheromatous plaque about the cavernous right ICA results in proximally 60% luminal narrowing, for example see image 89 series 3. The bilateral middle and anterior cerebral arteries appear widely patent. Anterior communicating artery is patent. The left vertebral artery is dominant. The majority of the right vertebral artery terminates into the its lateral PICA. Basilar artery is patent. Bilateral posterior cerebral arteries are widely patent. Major venous sinuses are patent. No aneurysm, dissection or proximal branch occlusion. IMPRESSION: 1. Mixed plaque formation about the cavernous and clinoid portions of the internal carotid arteries bilaterally results in approximately 60% luminal narrowing within the cavernous segment right ICA. The left ICA appears widely patent. 2. No aneurysm, dissection or proximal branch occlusion identified. CT ANGIOGRAPHY OF THE NECK WITH CONTRAST Findings: The origins of the bilateral common carotid and vertebral arteries are patent. There is severe stenosis at the origin of the right internal carotid artery with a string sign. The vessel diameter at site of stenosis is difficult to measure given the high degree of stenosis at the vessel measures approximately 0.8 mm in caliber. The more distal right internal carotid artery measures 4.7 mm. There is 95-99% stenosis of the proximal right internal carotid artery. There is no significant stenosis of the left internal carotid artery. The left vertebral artery is dominant. There is mild plaque at the origin of the left vertebral artery with suspected mild stenosis. The right vertebral artery is patent. There is no cervical lymphadenopathy. Lung apices are clear. The CTA of the head will be reported separately. There is slight asymmetric decreased caliber of the distal cervical portion of the right internal carotid artery when compared to the left. IMPRESSION: 1. Severe (95-99% stenosis) of the proximal right internal carotid artery due to extensive noncalcified atherosclerotic plaque. 2. No stenosis of the left internal carotid artery. 3. Mild stenosis at origin of the left vertebral artery. Consultations: 1. Neurology - Dr. Garcia 2. Vascular Surgery - Dr. Cornell 3. Intensivists - Dr. Grant Medication Reconciliation New Medications: Ketorolac Tromethamine (Toradol) 10 Mg Tab 10 MG PO Q6H PRN for Pain for 3 Days, #12 TAB Pantoprazole Sodium (Protonix) 40 Mg Tab 40 MG PO DAILY for 30 Days, #30 TAB Clopidogrel Bisulfate (Clopidogrel) 75 Mg Tab 75 MG PO DAILY for 30 Days, #30 TAB Oxycodone/Acetaminophen 5MG/325MG (Percocet 5MG/325MG) Tab 1-2 TAB PO Q4H PRN for Pain for 3 Days, #20 TAB Pravastatin Sod (Pravastatin Sodium) 10 Mg Tab 10 MG PO DAILY@17 for 30 Days, #30 TAB Continued Medications: Lisinopril (Zestril) 10 Mg Tab 10 MG PO DAILY, TAB Discharge Exam REVIEW OF SYSTEMS: Constitutional: No fever, No chills Respiratory: No cough, No shortness of breath Cardiovascular: No chest pain Abdomen: No pain, No nausea, No vomiting, No diarrhea, No constipation Musculoskeletal: No swelling, No calf pain Male : No dysuria Heme: No abnormal bleeding/bruising PHYSICAL EXAMS: General Appearance: WD/WN, no apparent distress Eyes: sclerae normal ENT: hearing grossly normal Neck: supple, no JVD, trachea midline Respiratory/Chest: lungs clear, normal breath sounds, no respiratory distress, no accessory muscle use Cardiovascular: regular rate, rhythm, no gallop, no murmur Abdomen: normal bowel sounds, non tender, soft Extremities: no pedal edema, no calf tenderness Neurologic/Psychiatric: alert, oriented x 3, + facial droop (L sided - slightly improved); mild weakness in LUE with good strength in LLE; some slowing of verbal response but speech is very minimally dysarthic Hospital Course ADMISSION: Mr. Wilkinson is a 68 y/o male with PMHx of HTN who presents to the ED for L facial droop and RUE/RLE dysfunction starting this AM. Patient was last known well around 0710 this AM. He was seen by his prior to her leaving and was in his normal state of health. Patient's cousin reports seeing him around 0730 this morning with a L sided facial droop and fidgeting RUE and rubbing his RLE constantly. He was having some difficulty ambulating and needed assistance to get into the truck to come to the ED. He has had issues with his R arm over the past week reporting pain and weakness. He was started on a Medrol dosepak last week and reports some improvement with symptoms. However did not completely resolve and started Prednisone 60 mg last night and tonight to start a new regimen. He states prior to today he has been in his normal state of health other than the arm. Open arrival to the ED, patient did have noted R sided issues and L facial droop and some aphasia. A stroke alert was called and he was deemed a tPA candidate. Initial Head CT showed possible infarct of R insular cortex and possible thrombus in the basilar artery but was not completely conclusive. tPA was administered and more obvious L sided deficits were evident. tPA was stopped and repeat Head CT performed which continued to show the findings in the R insular cortex but no mention of thrombus in basilar artery. He went for CTA which revealed severe 95-99% stenosis of prox R ICA and approx. 60% luminal narrowing within the cavernous segment of R ICA. ED provider discussed with Keri which recommended revascularization. During my initial examination patient with L sided neglect, R sided gaze, L facial droop, mild slurred speech , weakness to L hand cook vacuum kettle/flexion/extension of extremities, and initially could not hold both arms out in front of him but could individually with some drift of LUE. tPA was reinstituted which did improve some of his symptoms. He will also go for carotid endarterectomy today. HOSPITAL COURSE: Large R Frontotemporal/R MCA and R Frontal Lobe CVA S/P tPA: Significant R ICA Carotid Stenosis S/P R CEA - Patient had a rather unique presentation as he had L facial droop and R sided issues but was deemed a tPA candidate but developed L sided neglect, R gaze, L sided weakness. tPA was stopped and repeat head CT performed without bleed. CTA revealed significant R ICA stenosis with recommendations for revascularization. tPA was restarted and deficits improved and underwent emergent CEA - Plavix 75 mg daily; Pravastatin 10 mg daily -- Has WNL lipid panel - given this he was started on Pravastatin more for endothelial stability - Vascular followed- F/U with Dr. Cornell in 2 weeks - Neurology followed - Mr. Radha galloway F/U in 1 month at neurology clinic - Intensivists followed - assisted with post-endarterectomy hypotension which required pressor support however was successfully weaned of pressor support HTN: - Continue Lisinopril R Shoulder/Arm Pain: - Seems to get best management with anti-inflammatories. States he still has pain but is resolving compared to initial start - XR with no acute findings - chronic findings that correlate with his H/O dislocation from football in the past Code Status: FULL RESUSCITATION Disposition: [facility] for rehab Total Time Spent: Greater than 30 minutes This includes examination of the patient, discharge planning, medication reconciliation, and communication with other providers. Discharge Instructions Please refer to the electronic Patient Visit Report (Discharge Instructions) for additional information. Additional Copies To Gal Cruz PA-C; Wendimalissa Morovismaite Phillips
== END 2018-03-02 14:27 | DRG 38 ==
LOC: C.EDA 08:35 → C.MSICU 11:02 → ENRESERV 11:16 → C.MSICU 12:20 → C.2T 03-02 05:46
PROVIDERS: ADMIT Internal Medicine; ATTEND Internal Medicine
PROC: 3E03317 Introduction of Other Thrombolytic into Peripheral Vein, Percutaneous Approach (ICD-10-PCS; 2018-02-27)
PROC: 03CK0ZZ Extirpation of Matter from Right Internal Carotid Artery, Open Approach (ICD-10-PCS; principal; 2018-02-27 11:00)
PROC: 03UK0JZ Supplement Right Internal Carotid Artery with Synthetic Substitute, Open Approach (ICD-10-PCS; principal; 2018-02-27 11:00)
DX: I63.131 Cerebral infarction due to embolism of right carotid artery (principal); G81.94 Hemiplegia, unspecified affecting left nondominant side; I97.638 Postprocedural hematoma of a circulatory system organ or structure following other circulatory system procedure; R47.01 Aphasia; R29.810 Facial weakness; R29.703 NIHSS score 3; R47.1 Dysarthria and anarthria; R29.898 Other symptoms and signs involving the musculoskeletal system; M79.601 Pain in right arm; M25.511 Pain in right shoulder; I95.9 Hypotension, unspecified; I10 Essential (primary) hypertension; Z79.899 Other long term (current) drug therapy; Z82.49 Family history of ischemic heart disease and other diseases of the circulatory system; Y84.8 Other medical procedures as the cause of abnormal reaction of the patient, or of later complication, without mention of misadventure at the time of the procedure; Y92.239 Unspecified place in hospital as the place of occurrence of the external cause